=== PATIENT | male | born 1935 | race Caucasian/White ===

== ENCOUNTER 2021-04-23 10:28 | Outpatient (CLI) | payer OTHER | END 2021-04-23 10:29 | disposition critical access hospital (66) | LOC: EMS 10:28 | DX: M25.552 Pain in left hip (principal) | CPT/HCPCS: A0425; A0429 ==

== ENCOUNTER 2021-04-23 10:47 | Emergency (ER) | payer OTHER ==
--- NOTE | 2021-04-23 10:55 | ED Physician Documentation ---
PD HPI Fall - Stated complaint Stated Complaint: GLF/HIP PX - History obtained from History obtained from: Patient, EMS - History of Present Illness Mechanism of injury: Unknown Fall distance: Standing position Where injury occurred: Home Timing - onset: Today Injury(ies) location: Left Uppper Extremity, Left Lower Extremity Quality of pain: Pain Associated symptoms: Other (unwitnessed). No: LOC, AMS, Neck pain, Weakness, Paresthesias, Dyspnea, Nausea / vomiting Symptoms improve with: Rest Worsens with: Movement, Palpation Contributing factors: Anticoagulated Similar symptoms before: Has not had sx before Recently seen: Not recently seen - Additional information Additional information: 86-year-old male who is a resident of [facility] was found on the ground this morning and uncertain when he fell or how he fell but he was assisted back up to the bed he was able to bear weight to this and he now has pain to the left hip as well as left forearm. He is on Eliquis and had an unwitnessed fall. Review of Systems Constitutional: denies: Fever Eyes: denies: Photophobia Ears: denies: Ear pain Nose: denies: Congestion Throat: denies: Sore throat Cardiac: denies: Chest pain / pressure Respiratory: denies: Dyspnea, Cough GI: denies: Vomiting Skin: denies: Rash Musculoskeletal: reports: Extremity pain, Joint pain, Pain with weight bearing. denies: Neck pain, Back pain Neurologic: denies: Generalized weakness, Focal weakness, Numbness PD PAST MEDICAL HISTORY - Present Medications Home Medications: Ambulatory Orders Medication Instructions Recorded Confirmed Acetaminophen [Tylenol] 975 mg PO Q6H PRN 04/23/21 04/23/21 Apixaban [Eliquis] 5 mg ORAL BID 04/23/21 04/23/21 Digoxin [Lanoxin] 125 mcg PO DAILY 04/23/21 04/23/21 Famotidine [Pepcid] 20 mg PO BID 04/23/21 04/23/21 Ferrous Sulfate 325 mg PO DAILY 04/23/21 04/23/21 Lactobacillus Rhamnosus GG 1 cap PO DAILY 04/23/21 04/23/21 [Culturelle] Lactulose 15 ml PO DAILY 04/23/21 04/23/21 Loperamide [Imodium] 2 mg PO QID PRN 04/23/21 04/23/21 Mag Hydrox/Aluminum Hyd/Simeth 30 ml PO Q4HR PRN 04/23/21 04/23/21 [Antacid Anti-Gas Liquid] Magnesium Hydroxide [Milk of 30 ml PO DAILY PRN 04/23/21 04/23/21 Magnesia] Metoprolol Succinate [Toprol Xl] 50 mg PO BID 04/23/21 04/23/21 Mirtazapine 7.5 mg PO HS 04/23/21 04/23/21 OLANZapine [Zyprexa] 2.5 mg PO ONCE 04/23/21 04/23/21 Polyethylene Glycol 8000 17 gm ORAL DAILY PRN 04/23/21 04/23/21 [Polyethylene Glycol] Potassium Chloride [Klor-Con 10] 10 meq PO DAILY 04/23/21 04/23/21 allopurinoL [Zyloprim] 100 mg PO DAILY 04/23/21 04/23/21 dilTIAZem HCL [Diltiazem 24Hr ER 120 mg ORAL DAILY 04/23/21 04/23/21 (Xr)] - Allergies Allergies/Adverse Reactions: Allergies Allergy/AdvReac Type Severity Reaction Status Date / Time aspirin Allergy Unknown Verified 04/23/21 10:59 morphine Allergy Unknown Verified 04/23/21 10:59 Sulfa (Sulfonamide Allergy Unknown Verified 04/23/21 10:59 Antibiotics) PD ED PE NORMAL - Vitals Vital signs reviewed: Yes (hypertensive ) - General General: No acute distress, Well developed/nourished - HEENT HEENT: Atraumatic, PERRL, EOMI, Other (no tender area to deep palpation of the scalp ) - Neck Neck: Supple, no meningeal sign, No bony TTP - Cardiac Cardiac: RRR, No murmur - Respiratory Respiratory: No respiratory distress, Clear bilaterally - Abdomen Abdomen: Soft, Non tender - Back Back: No CVA TTP, No spinal TTP - Derm Derm: Normal color, Warm and dry, No rash - Extremities Extremities: No deformity, Other (Point tenderness to the lateral trochanter and pain with flexion extension and internal and external rotation. The leg is not shortened or rotated.) - Neuro Neuro: state comptroller 2-12 intact, No motor deficit, No sensory deficit, Normal speech Eye Opening: Spontaneous Motor: Obeys Commands Verbal: Oriented GCS Score: 15 - Psych Psych: Normal mood, Normal affect Results - Vitals Vitals: Vital Signs - 24 hr 04/23/21 04/23/21 04/23/21 10:59 12:10 13:55 Temperature 36.6 C 36.4 C L Heart Rate 90 87 98 Respiratory 16 12 14 Rate Blood Pressure 138/101 H 115/79 104/67 O2 Saturation 100 100 94 04/23/21 04/23/21 14:39 17:06 Temperature 37.6 C Heart Rate 105 H 82 Respiratory 16 16 Rate Blood Pressure 133/97 H 111/76 O2 Saturation 98 94 Oxygen O2 Source Room air - Labs Labs: Laboratory Tests 04/23/21 04/23/21 04/23/21 10:55 10:55 12:05 WBC 6.4 RBC 4.54 L Hgb 13.2 L Hct 42.1 MCV 92.7 MCH 29.1 MCHC 31.4 L RDW 14.6 Plt Count 183 MPV 10.1 Neut # (Auto) 3.7 Lymph # (Auto) 1.7 Miner # (Auto) 0.6 Eos # (Auto) 0.3 Baso # (Auto) 0.0 Absolute Nucleated RBC 0.00 Nucleated RBC % 0.0 Sodium 139 Potassium 4.5 Chloride 104 Carbon Dioxide 29 Anion Gap 6.0 BUN 12 Creatinine 0.7 Estimated GFR (MDRD) 107 Glucose 93 Calcium 9.0 Total Bilirubin 1.1 H AST 20 ALT 13 Alkaline Phosphatase 128 H Total Protein 6.9 Albumin 3.9 Globulin 3.0 Albumin/Globulin Ratio 1.3 Lipase 33 Nasal Adenovirus (PCR) NOT DETECTED Nasal B. parapertussis DNA (PCR) NOT DETECTED Nasal Coronavir 229E PCR NOT DETECTED Nasal Coronavir HKU1 PCR NOT DETECTED Nasal Coronavir NL63 PCR NOT DETECTED Nasal Coronavir OC43 PCR NOT DETECTED Nasal Enterovir/Rhinovir PCR NOT DETECTED Nasal Influenza B PCR NOT DETECTED Nasal Influenza A PCR NOT DETECTED Nasal Parainfluen 1 PCR NOT DETECTED Nasal Parainfluen 2 PCR NOT DETECTED Nasal Parainfluen 3 PCR NOT DETECTED Nasal Parainfluen 4 PCR NOT DETECTED Nasal RSV (PCR) NOT DETECTED Nasal B.pertussis DNA PCR NOT DETECTED Nasal C.pneumoniae (PCR) NOT DETECTED Flynn Human Metapneumo PCR NOT DETECTED Nasal M.pneumoniae (PCR) NOT DETECTED Nasal SARS-CoV-2 (PCR) NOT DETECTED - Rads (name of study) hip and pelvis Radiology: Prelim report reviewed (Impression, impacted left subcapital femoral neck fracture.), EMP read indepedently, See rad report forearm Radiology: Prelim report reviewed (Impression: No displaced fractures are seen on these plain films advanced atherosclerotic calcification is seen.), EMP read indepedently, See rad report CT head Radiology: Prelim report reviewed (Impression: 1. No acute intracranial abnormality. Moderate cerebral volume loss and mild chronic white matter small vessel ischemic changes.), EMP read indepedently, See rad report PD MEDICAL DECISION MAKING - ED course Complexity details: reviewed results, re-evaluated patient, considered differential, d/w patient ED course: 86-year-old male with advanced dementia has had a fall in his home unwitnessed this morning he has an impacted left femoral neck fracture. We have little or no information on this patient's medical history. He has been most recently s een at [facility]. We do not have records from them as yet. We do not have orthopedic coverage here for 3 more days. I have contacted Dr. Avilez the orthopedic surgeon at [facility]. They are boarding patients at [facility] and [facility]. We attempted [facility] as well and they are boarding in their ED as well and Dr. Tripathi is unable to accept the patient. We have call ed additional hospitals as well. We were able to get past history on him from an admission to [facility] in November that was complicated and involved a common duct stone, osteomylitis of the spine, and enterococcal sepsis. He was in the hospital for 3 months. He has heart rate varying from 130-95 and he is administered diltiazem 20mg intravenously for rate control of atrial fibrillation. We were finally able to find a bed at [facility] with Dr. Kirk Durant the orthopedic second surgeon consulting and Dr. Cope the hospitalist excepting. I have notified patient's son-in-law Ollie [phone] that he will be going down to [facility]. Departure - Departure Disposition: 02 Transfer Acute Care Hosp Clinical Impression: Atrial fibrillation with RVR Subcapital fracture of neck of left femur Qualifiers: Encounter type: initial encounter Fracture type: closed Qualified Code(s): S72.012A - Unspecified intracapsular fracture of left femur, initial encounter for closed fracture Hypertension Qualifiers: Hypertension type: unspecified Qualified Code(s): I10 - Essential (primary) hypertension Condition: Stable
--- NOTE | 2021-04-23 11:35 | CT Report ---
PROCEDURE: HEAD WO INDICATIONS: trauma, eliquis TECHNIQUE: Noncontrast 4.5 mm thick angled axial sections acquired from the foramen magnum to the vertex. For r adiation dose reduction, the following was used: automated exposure control, adjustment of mA and/or kV according to patient size. COMPARISON: None. FINDINGS: Image quality: Excellent. CSF spaces: There is moderate cerebral volume loss with prominence of the ventricles and sulci. Basa l cisterns are patent. No extra-axial fluid collections. Brain: No intracranial hemorrhage, mass, or mass effect. There are bilateral subcortical and periven tricular white matter hypodensities consistent with mild chronic small vessel ischemic changes. Joya- white matter interface is preserved. Skull and face: Calvarium and visualized facial bones are intact, without suspicious lesions. Sinuses: Visualized sinuses and mastoids are clear. IMPRESSION: 1. No acute intracranial abnormality. 2. Moderate cerebral volume loss and mild chronic white matter small vessel ischemic changes. Reviewed by: Alejandro Andino MD on 04/23/2021 11:34 AM PST Approved by: Alejandro Andino MD on 04/23/2021 11:34 AM PST Station ID: [id number]
--- NOTE | 2021-04-23 11:35 | XRAY Report ---
PROCEDURE: Hip w/Pelvis 2-3V LT INDICATIONS: fall trochanter pain TECHNIQUE: AP pelvis with lateral view(s) of the left hip COMPARISON: Correlation is made with the accompanying images, 04/23/2021. FINDINGS: Bones: There is impacted subcapital fracture of the left femoral neck. No fracture of the bones of t he pelvis can be seen. There is moderate to severe superior joint space narrowing seen involving , left worse than right. Th ere is associated remodeling change, with subchondral sclerosis and osteophyte formation. No dislocations. Pelvic ring appears intact. No suspicious bony lesions. Soft tissues: The visualized bowel gas pattern is normal. No suspicious soft tissue calcifications. Right-sided pelvis clips are seen. Atherosclerotic calcification is seen. IMPRESSION: Impacted left subcapital femoral neck fracture. If it would be helpful for clinical management decision making, please consider a dedicated hip CT fo r further evaluation. Reviewed by: Shane Parks MD on 04/23/2021 10:33 AM [facility] Approved by: Shane Parks MD on 04/23/2021 10:33 AM [facility] Station ID: [id number]
--- NOTE | 2021-04-23 11:36 | XRAY Report ---
PROCEDURE: Forearm LT INDICATIONS: fall distal radius pain TECHNIQUE: 2 views of the forearm were acquired. COMPARISON: Correlation is made with the accompanying images, 04/23/2021. FINDINGS: Bones: No fractures or dislocations. No suspicious bony lesions. Degenerative changes are seen, particularly involving the wrist. Soft tissues: No suspicious soft tissue calcifications or masses. Prominent atherosclerotic calcific ation is seen. IMPRESSION: No displaced fractures are seen on these plain films. Please correlate with focal tenderness. If there is point tenderness (or other clinical concern for a fracture not seen on these plain films) then please consider a dedicated CT study or a short term fo llow up plain film series for further evaluation. Advanced atherosclerotic calcification is seen. Reviewed by: Shane Parks MD on 04/23/2021 10:34 AM [facility] Approved by: Shane Parks MD on 04/23/2021 10:34 AM [facility] Station ID: [id number]
[2021-04-23 11:57] LABS: BASOPHILS % (AUTO) 0.6 %; EOSINOPHILS # (AUTO) 0.3 10^3/uL (0.0-0.7); EOSINOPHILS % (AUTO) 4.7 %; HCT - HEMATOCRIT 42.1 % (42.0-52.0); HGB - HEMOGLOBIN 13.2 g/dL (14.0-18.0); LYMPHOCYTES # (AUTO) 1.7 10^3/uL (1.5-3.5); LYMPHOCYTES % (AUTO) 27.1 %; MEAN CORPUSCULAR HEMOGLOBIN 29.1 pg (27.0-31.0); MEAN CORPUSCULAR HGB CONC 31.4 g/dL (32.0-36.0); MEAN CORPUSCULAR VOLUME 92.7 fL (80.0-94.0); MEAN PLATELET VOLUME 10.1 fL (7.4-11.4); MONOCYTES # (AUTO) 0.6 10^3/uL (0.0-1.0); MONOCYTES % (AUTO) 9.5 %; NEUTROPHILS # (AUTO) 3.7 10^3/uL (1.5-6.6); NEUTROPHILS % (AUTO) 57.6 %; PLT - PLATELET COUNT 183 10^3/uL (130-450); RED BLOOD COUNT 4.54 10^6/uL (4.70-6.10); RED CELL DISTRIBUTION WIDTH 14.6 % (12.0-15.0); WHITE BLOOD COUNT 6.4 x10^3/uL (4.8-10.8)
[2021-04-23 12:07] LABS: ALBUMIN 3.9 g/dL (3.2-5.5); ALBUMIN/GLOBULIN RATIO 1.3 (1.0-2.2); BILIRUBIN,TOTAL 1.1 mg/dL (0.2-1.0); CREATININE 0.7 mg/dL (0.6-1.2); POTASSIUM 4.5 mmol/L (3.5-5.0); TOTAL PROTEIN 6.9 g/dL (6.7-8.2)
[2021-04-23 13:04] LABS: B. PARAPERTUSSIS- RESP PCR PAN NOT DETECTED; B. PERTUSSIS- RESP PCR PANEL NOT DETECTED; C. PNEUMONIAE- RESP PCR PANEL NOT DETECTED; CORONAVIRUS 229E-RESP PCR NOT DETECTED; CORONAVIRUS HKU1-RESP PCR NOT DETECTED; CORONAVIRUS NL63-RESP PCR NOT DETECTED; CORONAVIRUS OC43-RESP PCR NOT DETECTED; HUMAN METAPNEUMOVIRUS NOT DETECTED; INFLUENZA A- RESP PCR PANEL NOT DETECTED; INFLUENZA B - RESP PCR PANEL NOT DETECTED; M. PNEUMONIAE- RESP PCR PANEL NOT DETECTED; PARAINFLUENZA VIRUS 1 NOT DETECTED; PARAINFLUENZA VIRUS 2 NOT DETECTED; PARAINFLUENZA VIRUS 3 NOT DETECTED; PARAINFLUENZA VIRUS 4 NOT DETECTED; RHINOVIRUS/ENTEROVIRUS NOT DETECTED; RSV- RESP PCR PANEL NOT DETECTED; SARS-CoV-2 -RESP PCR PANEL NOT DETECTED
[2021-04-23] MEDS ORDERED: KETOROLAC 30 MG/ML VIAL IVP STA (15:20)
[2021-04-23] MEDS ORDERED: diltiaZEM INJ 5 MG/ML VIAL IVP STA (15:24)
[2021-04-23 19:10] VITALS: BP 128/70
== END 2021-04-23 19:30 | disposition short-term general hospital (02) ==
LOC: ED 10:47
DX: S72.012A Unspecified intracapsular fracture of left femur, initial encounter for closed fracture (principal); W19.XXXA Unspecified fall, initial encounter; I48.20 Chronic atrial fibrillation, unspecified; Z79.01 Long term (current) use of anticoagulants; F03.90 Unspecified dementia, unspecified severity, without behavioral disturbance, psychotic disturbance, mood disturbance, and anxiety; Z20.822 Contact with and (suspected) exposure to COVID-19
CPT/HCPCS: 0202U; 36415; 70450; 73090; 73502; 80053; 83690; 85025; 96374; 96375; 99283; 99285

== ENCOUNTER 2021-04-23 19:30 | Outpatient (CLI) | payer OTHER | END 2021-04-23 19:31 | disposition short-term general hospital (02) | LOC: EMS 19:30 | PROVIDERS: ATTEND Emergency Medicine | DX: S72.012A Unspecified intracapsular fracture of left femur, initial encounter for closed fracture (principal); W19.XXXA Unspecified fall, initial encounter; Y92.199 Unspecified place in other specified residential institution as the place of occurrence of the external cause | CPT/HCPCS: A0425; A0428 ==

== ENCOUNTER 2021-06-11 21:13 | Outpatient (CLI) | payer OTHER | END 2021-06-11 21:14 | disposition critical access hospital (66) | LOC: EMS 21:13 | DX: R07.81 Pleurodynia (principal); S01.112A Laceration without foreign body of left eyelid and periocular area, initial encounter; W18.30XA Fall on same level, unspecified, initial encounter; Y92.099 Unspecified place in other non-institutional residence as the place of occurrence of the external cause; Z79.01 Long term (current) use of anticoagulants | CPT/HCPCS: A0425; A0429 ==

== ENCOUNTER 2021-06-11 21:33 | Emergency (ER) | payer OTHER ==
[~2021-06-11 21:33] MED LIST: AMOX/CLAV 875 MG/125 MG TABLET PO STA
[2021-06-11] MEDS ORDERED: ACETAMINOPHEN 325 MG TABLET PO STA (21:41)
--- NOTE | 2021-06-11 22:03 | ED Physician Documentation ---
History of Present Illness - Stated complaint Stated Complaint: GLF, LEFT EYE LAC AND LEFT SIDED RIB PAIN - Chief complaint Chief Complaint: Trauma Hd/Nk - History obtained from History obtained from: EMS - Additonal information Additional information: 86yM with pmh afib on eliquis, moderate dementia presents s/p [facility] patient called for help from staff at 3pm and was found on floor with lac to L eye brow. later in the evening he c/o L rib pain so ems was called and patient came in as modified trauma (+HT on eliquis). c/o sudden onset intermittent sharp pain to L anterior ribcage that is nonradiating, worse with deep breathing, progressively worsening over the day today since his fall. denies other injury. patient AOX2 at baseline. Review of Systems Unable to obtain: Dementia PD PAST MEDICAL HISTORY - Present Medications Home Medications: Ambulatory Orders Medication Instructions Recorded Confirmed Acetaminophen [Tylenol] 975 mg PO Q6H PRN 04/23/21 04/23/21 Apixaban [Eliquis] 5 mg ORAL BID 04/23/21 04/23/21 Digoxin [Lanoxin] 125 mcg PO DAILY 04/23/21 04/23/21 Famotidine [Pepcid] 20 mg PO BID 04/23/21 04/23/21 Ferrous Sulfate 325 mg PO DAILY 04/23/21 04/23/21 Lactobacillus Rhamnosus GG 1 cap PO DAILY 04/23/21 04/23/21 [Culturelle] Lactulose 15 ml PO DAILY 04/23/21 04/23/21 Loperamide [Imodium] 2 mg PO QID PRN 04/23/21 04/23/21 Mag Hydrox/Aluminum Hyd/Simeth 30 ml PO Q4HR PRN 04/23/21 04/23/21 [Antacid Anti-Gas Liquid] Magnesium Hydroxide [Milk of 30 ml PO DAILY PRN 04/23/21 04/23/21 Magnesia] Metoprolol Succinate [Toprol Xl] 50 mg PO BID 04/23/21 04/23/21 Mirtazapine 7.5 mg PO HS 04/23/21 04/23/21 OLANZapine [Zyprexa] 2.5 mg PO ONCE 04/23/21 04/23/21 Polyethylene Glycol 8000 17 gm ORAL DAILY PRN 04/23/21 04/23/21 [Polyethylene Glycol] allopurinoL [Zyloprim] 100 mg PO DAILY 04/23/21 04/23/21 Acetaminophen [Acetaminophen Extra 500 mg PO TID 06/11/21 06/11/21 Strength] Lactobacillus Rhamnosus GG 1 cap PO DAILY 06/11/21 06/11/21 [Culturelle] - Allergies Allergies/Adverse Reactions: Allergies Allergy/AdvReac Type Severity Reaction Status Date / Time aspirin Allergy Unknown Verified 04/23/21 10:59 morphine Allergy Unknown Verified 04/23/21 10:59 Sulfa (Sulfonamide Allergy Unknown Verified 04/23/21 10:59 Antibiotics) PD ED PE NORMAL - Vitals Vital signs reviewed: Yes - General General: No acute distress, Well developed/nourished - HEENT HEENT: PERRL, EOMI, Other (L browline superficial lac, hemostatic. L forehead small hematoma. ) - Neck Neck: Other (midline neck discomfort to palpation. ) - Cardiac Cardiac: RRR, Other (L anterolateral ribcage ttp) - Respiratory Respiratory: No respiratory distress, Clear bilaterally - Abdomen Abdomen: Non tender, Non distended - Back Back: No spinal TTP, Other (pelvis stable) - Derm Derm: Normal color, Warm and dry - Extremities Extremities: No deformity, Normal ROM s pain - Neuro Neuro: No motor deficit, No sensory deficit - Psych Psych: Normal mood, Normal affect, Other (mentating at baseline per ems) Results - Vitals Vitals: Vital Signs - 24 hr 06/11/21 06/11/21 21:39 22:13 Temperature 36.3 C L Heart Rate 108 H 110 H Respiratory 17 15 Rate Blood Pressure 167/109 H 138/86 H O2 Saturation 98 99 Oxygen O2 Source Room air PD MEDICAL DECISION MAKING - ED course ED course: 86yM presents as modified trauma with concern for +HT and L sided rib pain. traumatic imaging pending. Patient without acute traumatic pathology on CT. will dc home with tylenol prn for pain. Departure - Departure Disposition: 01 Home, Self Care Clinical Impression: Lumbar compression fracture Condition: Stable Instructions: ED Fx Comp Vertebral Comments: Mr. Aranda came to the ED for evaluation after a fall. He has an L1 compression deformity on CT imaging that may be old, but otherwise has no broken bones or bleeding in the brain. His cut on the eyebrow was repaired with dermabond. Please monitor for signs of infection. He should take tylenol 650mg every 6 hours as needed for pain. Please have him come back to the emergency department if he develops new or worsening symptoms or you have other concerns.
--- NOTE | 2021-06-11 22:22 | CT Report ---
PROCEDURE: HEAD WO INDICATIONS: Head trauma, mod-severe TECHNIQUE: Noncontrast 4.5 mm thick angled axial sections acquired from the foramen magnum to the vertex. For r adiation dose reduction, the following was used: automated exposure control, adjustment of mA and/or kV according to patient size. COMPARISON: April 23, 2021. FINDINGS: BRAIN PARENCHYMA: Moderate matter hypoattenuation, compatible with the sequela microvascular ischemia . Prominence of the cortical sulci, likely secondary to age-related atrophy. No acute cortical based (large territory) infarction, intracranial hemorrhage, mass or mass effect, or abnormal fluid collect ion. The density in the larger dural venous sinuses is grossly normal. VENTRICLES: Normal in size, shape, and position. BONES/SINUSES: The skull base and calvarium demonstrate no acute abnormality. The paranasal sinuses a nd mastoid air cells are well aerated. IMPRESSION: 1.No acute intracranial abnormality. Reviewed by: Juan Solis MD on 06/11/2021 10:21 PM [facility] Approved by: Juan Solis MD on 06/11/2021 10:21 PM PST Station ID: [id number]
--- NOTE | 2021-06-11 22:25 | CT Report ---
PROCEDURE: CERVICAL SPINE WO INDICATIONS: Neck trauma, midline tenderness TECHNIQUE: Noncontrast 3 mm thick sections acquired from the skull base to the T4 level. Sagittal and coronal r eformats were then constructed. For radiation dose reduction, the following was used: automated exp osure control, adjustment of mA and/or kV according to patient size. COMPARISON: None. FINDINGS: C-SPINE: No acute, displaced fracture. Grade 1 anterolisthesis at C3-4 and C7-T1. The vertebral body heights delayed are maintained. Moderate disc height loss with small posterior disc osteophyte comple xes at C4-C7. SOFT TISSUES: No prevertebral soft tissue thickening. IMPRESSION: 1.No acute osseous abnormality of the cervical spine. Reviewed by: Juan Solis MD on 06/11/2021 10:24 PM [facility] Approved by: Juan Solis MD on 06/11/2021 10:24 PM [facility] Station ID: [id number]
--- NOTE | 2021-06-11 22:34 | CT Report ---
PROCEDURE: CHEST WO INDICATIONS: L rib tenderness s/p fall TECHNIQUE: Noncontrast 1mm axial images were acquired from the pulmonary apices to the posterior costophrenic an gles. Axial 5 mm soft tissue kernel reconstructions were performed as well as 8 mm axial MIP and cor onal and sagittal 5 mm reformations. For radiation dose reduction, the following was used: automate d exposure control, adjustment of mA and/or kV according to patient size. COMPARISON: None. FINDINGS: Thyroid: Homogeneous. Vasculature: Dilatation of the ascending thoracic aorta, measuring up to 4.2 cm. Mild calcified ather omatous change. Heart: Cardiomegaly without pericardial effusion. Coronary artery calcifications are present. Mediastinum/marichuy: No pathologically enlarged lymph nodes by size criteria. Small to moderate hiatal h ernia. Lung/pleura: No consolidation, pleural effusion, or pneumothorax. Bilateral calcified pleural plaques. Tracheobronchial tree: Patent. Mild atelectasis. Upper abdomen: No acute abnormality. Predominately left intrahepatic pneumobilia. 2.1 cm hypoattenuating lesion in the left kidney most consistent with a cyst. Colonic diverticulosis. Bones: No significant abnormality. Multifocal degenerative change. T11-12 endplate irregularities, wh ich may reflect Schmorl nodes. Mild anterior L1 compression deformity. Chest wall: No significant abnormality. IMPRESSION: 1.No acute intrathoracic abnormality. Reviewed by: Juan Solis MD on 06/11/2021 10:32 PM [facility] Approved by: Juan Solis MD on 06/11/2021 10:32 PM PST Station ID: [id number]
[2021-06-12 01:13] VITALS: BP 132/84
== END 2021-06-12 01:07 | disposition home or self-care (01) ==
LOC: EDUNIT# → SUPCPDRO 21:33 → ED 21:33
DX: S01.112A Laceration without foreign body of left eyelid and periocular area, initial encounter (principal); M48.56XA Collapsed vertebra, not elsewhere classified, lumbar region, initial encounter for fracture; W19.XXXA Unspecified fall, initial encounter; Y92.129 Unspecified place in nursing home as the place of occurrence of the external cause
CPT/HCPCS: 70450; 71250; 72125; 99281; 99284; A9270

== ENCOUNTER 2021-06-12 01:12 | Outpatient (CLI) | payer OTHER | END 2021-06-12 01:13 | disposition home or self-care (01) | LOC: EMS 01:12 | PROVIDERS: ATTEND Emergency Medicine | DX: S32.019A Unspecified fracture of first lumbar vertebra, initial encounter for closed fracture (principal); S01.112A Laceration without foreign body of left eyelid and periocular area, initial encounter; W18.30XA Fall on same level, unspecified, initial encounter; Y92.099 Unspecified place in other non-institutional residence as the place of occurrence of the external cause; R41.0 Disorientation, unspecified; R07.9 Chest pain, unspecified | CPT/HCPCS: A0425; A0428 ==

== ENCOUNTER 2021-07-18 23:52 | Outpatient (CLI) | payer OTHER | END 2021-07-18 23:53 | disposition critical access hospital (66) | LOC: EMS 23:52 | DX: S51.012A Laceration without foreign body of left elbow, initial encounter (principal); W18.30XA Fall on same level, unspecified, initial encounter; Y93.01 Activity, walking, marching and hiking; Y92.193 Bedroom in other specified residential institution as the place of occurrence of the external cause | CPT/HCPCS: A0425; A0429 ==

== ENCOUNTER 2021-07-19 00:09 | Emergency (ER) | payer MEDICAID, MEDICARE, OTHER ==
[2021-07-19 00:24] LABS: BASOPHILS # (AUTO) 0.1 10^3/uL (0.0-0.1); BASOPHILS % (AUTO) 0.9 %; EOSINOPHILS # (AUTO) 0.2 10^3/uL (0.0-0.7); EOSINOPHILS % (AUTO) 3.6 %; HCT - HEMATOCRIT 38.2 % (42.0-52.0); HGB - HEMOGLOBIN 12.4 g/dL (14.0-18.0); LYMPHOCYTES # (AUTO) 1.6 10^3/uL (1.5-3.5); MEAN CORPUSCULAR HEMOGLOBIN 29.8 pg (27.0-31.0); MEAN CORPUSCULAR HGB CONC 32.5 g/dL (32.0-36.0); MEAN CORPUSCULAR VOLUME 91.8 fL (80.0-94.0); MEAN PLATELET VOLUME 10.1 fL (7.4-11.4); MONOCYTES # (AUTO) 0.5 10^3/uL (0.0-1.0); MONOCYTES % (AUTO) 9.1 %; NEUTROPHILS # (AUTO) 3.4 10^3/uL (1.5-6.6); NEUTROPHILS % (AUTO) 59.1 %; PLT - PLATELET COUNT 153 10^3/uL (130-450); RED BLOOD COUNT 4.16 10^6/uL (4.70-6.10); RED CELL DISTRIBUTION WIDTH 15.4 % (12.0-15.0); WHITE BLOOD COUNT 5.8 x10^3/uL (4.8-10.8)
[2021-07-19 00:30] LABS: INR 1.6 (0.8-1.2); PT - PROTHROMBIN TIME 17.7 secs (9.9-12.6)
[2021-07-19 00:36] LABS: ALBUMIN 3.7 g/dL (3.2-5.5); ALBUMIN/GLOBULIN RATIO 1.3 (1.0-2.2); BILIRUBIN,TOTAL 0.8 mg/dL (0.2-1.0); CALCIUM 8.7 mg/dL (8.5-10.3); CREATININE 0.7 mg/dL (0.6-1.2); TOTAL PROTEIN 6.5 g/dL (6.7-8.2)
[2021-07-19] MEDS: SODIUM CHLORIDE 0.9% 1,000 ML IV STA (00:50)
[2021-07-19] MEDS: diltiaZEM INJ 5 MG/ML VIAL IVP STA (00:50)
--- NOTE | 2021-07-19 01:03 | CT Report ---
PROCEDURE: HEAD WO INDICATIONS: fall/injury/anticoag TECHNIQUE: Noncontrast 4.5 mm thick angled axial sections acquired from the foramen magnum to the vertex. For r adiation dose reduction, the following was used: automated exposure control, adjustment of mA and/or kV according to patient size. COMPARISON: CT head 06/11/2021 FINDINGS: Image quality: Excellent. The ventricular system and cortical sulci demonstrate atrophy, consistent for patient's stated age. There are areas of hypodensity in the periventricular and subcortical white matter. There is no acut e intra or extra-axial fluid collection. No acute hemorrhage, mass lesion or midline shift. Brainst em is unremarkable. Globes are symmetrical. Sinuses are aerated. Osseous structures are intact. IMPRESSION: 1. No acute intracranial process. 2. Moderate to severe atrophy and chronic microvascular ischemic changes. Reviewed by: Vonda Fernandez MD on 07/19/2021 1:02 AM PST Approved by: Vonda Fernandez MD on 07/19/2021 1:02 AM PST Station ID: [id number]
--- NOTE | 2021-07-19 01:05 | CT Report ---
PROCEDURE: CERVICAL SPINE WO INDICATIONS: fall/head injury TECHNIQUE: Noncontrast 3 mm thick sections acquired from the skull base to the T4 level. Sagittal and coronal r eformats were then constructed. For radiation dose reduction, the following was used: automated exp osure control, adjustment of mA and/or kV according to patient size. COMPARISON: CT cervical spine 06/11/2021 FINDINGS: Image quality: Excellent. Bones: No fractures or dislocations. Visualized superior ribs are intact. Multilevel degenerative changes are present. There is trace retrolisthesis of C5 on C6 as well as trace anterolisthesis of C7 on T1. Soft tissues: Prevertebral soft tissues are normal in thickness. No paravertebral hematomas. No ap ical pneumothoraces. IMPRESSION: Degenerative changes without visualized fracture. Reviewed by: Vonda Fernandez MD on 07/19/2021 1:03 AM PST Approved by: Vonda Fernandez MD on 07/19/2021 1:03 AM PST Station ID: [id number]
--- NOTE | 2021-07-19 01:35 | ED Physician Documentation ---
History of Present Illness - Stated complaint Stated Complaint: GLF - Chief complaint Chief Complaint: Neuro - History obtained from History obtained from: Patient, EMS - Additonal information Additional information: The patient is sent to the emergency department from his assisted living facility after experiencing a mechanical fall while walking with his walker. The patient apparently tripped over his walker, then stumbled several steps before falling to the ground, which was a hard surface floor, striking his head. According to medics, the staff reported the patient did not lose consciousness, but was helped right back up. The patient denies any complaints at this time. Medics report that the patient does seem to have a fairly fast heart rate. He has not had any chest pain. Denies any complaints. He states nothing is bothering him. Review of Systems Ten Systems: 10 systems reviewed and negative Constitutional: reports: Reviewed and negative Eyes: reports: Reviewed and negative Ears: reports: Reviewed and negative Nose: reports: Reviewed and negative Throat: reports: Reviewed and negative Cardiac: reports: Reviewed and negative Respiratory: reports: Reviewed and negative GI: reports: Reviewed and negative : reports: Reviewed and negative Skin: reports: Reviewed and negative Musculoskeletal: reports: Reviewed and negative Neurologic: reports: Reviewed and negative Psychiatric: reports: Reviewed and negative Endocrine: reports: Reviewed and negative Immunocompromised: reports: Reviewed and negative PD PAST MEDICAL HISTORY - Present Medications Home Medications: Ambulatory Orders Medication Instructions Recorded Confirmed Acetaminophen [Tylenol] 975 mg PO Q6H PRN 04/23/21 04/23/21 Apixaban [Eliquis] 5 mg ORAL BID 04/23/21 04/23/21 Digoxin [Lanoxin] 125 mcg PO DAILY 04/23/21 04/23/21 Famotidine [Pepcid] 20 mg PO BID 04/23/21 04/23/21 Ferrous Sulfate 325 mg PO DAILY 04/23/21 04/23/21 Lactobacillus Rhamnosus GG 1 cap PO DAILY 04/23/21 04/23/21 [Culturelle] Lactulose 15 ml PO DAILY 04/23/21 04/23/21 Loperamide [Imodium] 2 mg PO QID PRN 04/23/21 04/23/21 Mag Hydrox/Aluminum Hyd/Simeth 30 ml PO Q4HR PRN 04/23/21 04/23/21 [Antacid Anti-Gas Liquid] Magnesium Hydroxide [Milk of 30 ml PO DAILY PRN 04/23/21 04/23/21 Magnesia] Metoprolol Succinate [Toprol Xl] 50 mg PO BID 04/23/21 04/23/21 Mirtazapine 7.5 mg PO HS 04/23/21 04/23/21 OLANZapine [Zyprexa] 2.5 mg PO ONCE 04/23/21 04/23/21 Polyethylene Glycol 8000 17 gm ORAL DAILY PRN 04/23/21 04/23/21 [Polyethylene Glycol] allopurinoL [Zyloprim] 100 mg PO DAILY 04/23/21 04/23/21 Acetaminophen [Acetaminophen Extra 500 mg PO TID 06/11/21 06/11/21 Strength] Lactobacillus Rhamnosus GG 1 cap PO DAILY 06/11/21 06/11/21 [Culturelle] - Allergies Allergies/Adverse Reactions: Allergies Allergy/AdvReac Type Severity Reaction Status Date / Time aspirin Allergy Unknown Verified 04/23/21 10:59 morphine Allergy Unknown Verified 04/23/21 10:59 Sulfa (Sulfonamide Allergy Unknown Verified 04/23/21 10:59 Antibiotics) PD ED PE NORMAL - Vitals Vital signs reviewed: Yes - General General: Alert and oriented X 3, No acute distress, Well developed/nourished, Other - HEENT HEENT: Atraumatic, PERRL, EOMI, Ears normal, Moist mucous membranes, Other (Slight contusion on left forehead without bony deformity or significant soft tissue swelling.) - Neck Neck: Supple, no meningeal sign, No bony TTP - Cardiac Cardiac: No murmur, Strong equal pulses, Other (Irregular rate and rhythm) - Respiratory Respiratory: No respiratory distress, Clear bilaterally - Abdomen Abdomen: Soft, Non tender, Non distended - Back Back: No CVA TTP, No spinal TTP - Derm Derm: Normal color, Warm and dry, No rash - Extremities Extremities: No deformity, No edema, No calf tenderness / cord - Neuro Neuro: director of recruitment and admissions 2-12 intact, No motor deficit, Other (Grossly intact. The patient answers simple questions appropriately.) - Psych Psych: Normal mood, Normal affect Results - Vitals Vitals: Vital Signs - 24 hr 07/19/21 07/19/21 07/19/21 00:15 00:18 00:50 Temperature 36.6 C 36.6 C Heart Rate 77 77 116 H Respiratory 18 18 17 Rate Blood Pressure 126/92 H 126/92 H 126/92 H O2 Saturation 97 97 99 07/19/21 07/19/21 07/19/21 00:55 01:00 01:30 Temperature Heart Rate 115 H 75 78 Respiratory 16 17 17 Rate Blood Pressure 105/64 105/60 117/80 O2 Saturation 100 99 98 07/19/21 02:04 Temperature Heart Rate 88 Respiratory 17 Rate Blood Pressure 102/63 O2 Saturation 99 Oxygen O2 Source Room air - Labs Labs: Laboratory Tests 07/19/21 07/19/21 07/19/21 00:18 00:18 00:18 WBC 5.8 RBC 4.16 L Hgb 12.4 L Hct 38.2 L MCV 91.8 MCH 29.8 MCHC 32.5 RDW 15.4 H Plt Count 153 MPV 10.1 Neut # (Auto) 3.4 Lymph # (Auto) 1.6 [place] # (Auto) 0.5 Eos # (Auto) 0.2 Baso # (Auto) 0.1 Absolute Nucleated RBC 0.00 Nucleated RBC % 0.0 PT 17.7 H INR 1.6 H Sodium 137 Potassium 4.0 Chloride 103 Carbon Dioxide 23 Anion Gap 11.0 BUN 12 Creatinine 0.7 Estimated GFR (MDRD) 107 Glucose 98 Calcium 8.7 Total Bilirubin 0.8 AST 19 ALT 11 Alkaline Phosphatase 108 Total Protein 6.5 L Albumin 3.7 Globulin 2.8 Albumin/Globulin Ratio 1.3 Lipase 29 - Rads (name of study) CT head Radiology: Final report received, EMP read indepedently, See rad report (nad) CT cervical spine Radiology: Final report received, EMP read indepedently, See rad report (nad) PD MEDICAL DECISION MAKING - ED course Complexity details: reviewed results, re-evaluated patient, considered differential, d/w patient ED course: The patient overall appeared fairly well, but was found to be in atrial fibrillation with rapid ventricular response. He was treated for this with Cardizem and responded well. He was sent for CT scans of the head and neck, which were found to be unremarkable. I felt the patient was stable for discharge home. We have discussed home management of the symptoms, as well as the usual indications for return. Departure - Departure Disposition: 01 Home, Self Care Clinical Impression: Fall from ground level, Atrial fibrillation with rapid ventricular response Closed head injury Qualifiers: Encounter type: initial encounter Qualified Code(s): S09.90XA - Unspecified injury of head, initial encounter Condition: Stable Instructions: ED Afib, ED Head Injury Closed Comments: Scans look goodno bleeding in the brain or broken bones. Your heart was going a little fast tonight, so you were given medication to help slow it down. This is as a result of your chronic atrial fibrillation. Please continue your home medications, as usual. You should follow-up with your primary care physician if your medications are not working to control your heart rate well enough. Discharge Date/Time: 07/19/21 02:40
[2021-07-19 02:05] VITALS: BP 102/63
== END 2021-07-19 02:40 | disposition home or self-care (01) ==
LOC: EDUNIT# → ED 00:09 → SUPCPDRO 00:09 → ED 02:40
DX: S09.90XA Unspecified injury of head, initial encounter (principal); I48.20 Chronic atrial fibrillation, unspecified; Z79.01 Long term (current) use of anticoagulants; W01.0XXA Fall on same level from slipping, tripping and stumbling without subsequent striking against object, initial encounter; Y93.01 Activity, walking, marching and hiking; Y92.199 Unspecified place in other specified residential institution as the place of occurrence of the external cause
CPT/HCPCS: 36415; 80053; 83690; 85025; 85610; 93005; 96374; 99282

== ENCOUNTER 2021-07-19 02:40 | Outpatient (CLI) | payer OTHER | END 2021-07-19 02:41 | disposition home or self-care (01) | LOC: EMS 02:40 | PROVIDERS: ATTEND Emergency Medicine | DX: R41.0 Disorientation, unspecified (principal); S51.012A Laceration without foreign body of left elbow, initial encounter; W19.XXXA Unspecified fall, initial encounter; I48.91 Unspecified atrial fibrillation; Z79.01 Long term (current) use of anticoagulants | CPT/HCPCS: A0425; A0428 ==

== ENCOUNTER 2022-01-17 20:37 | Emergency (ER) | payer MEDICARE, MEDICAID ==
[2022-01-17] MEDS ORDERED: ONDANSETRON 4 MG/2 ML VIAL IVP STA (20:42)
[2022-01-17] MEDS ORDERED: SODIUM CHLORIDE 0.9% 500 ML IV STA (20:42)
[2022-01-17] MEDS ORDERED: fentaNYL 100 MCG/2 ML VIAL IVP STA ×2 (20:43→21:20)
--- NOTE | 2022-01-17 20:49 | ED Physician Documentation ---
PD HPI ABD PAIN - Stated complaint Stated Complaint: L ABDOMINAL PX - History obtained from History obtained from: Patient, EMS - Additional information Additional information: Patient is an 87-year-old male with a history of atrial fibrillation (on Eliquis) presenting for evaluation of upper abdominal pain that has been present since yesterday. He describes it as sharp. He does have some radiation to the back. Nothing makes it better or worse. He has associated nausea. Per staff at the detention he had a bowel movement today that was normal. They have also noticed that he is slightly jaundiced today. He denies fever, cough, chest pain or difficulty breathing. He has not been able to tolerate much p.o.He denies known history of similar symptoms. Review of Systems Constitutional: denies: Fever Nose: denies: Congestion Throat: denies: Sore throat Cardiac: denies: Chest pain / pressure Respiratory: denies: Dyspnea GI: reports: Abdominal Pain, Nausea. denies: Vomiting, Diarrhea : denies: Dysuria Skin: denies: Rash Musculoskeletal: reports: Back pain Neurologic: denies: Headache PD PAST MEDICAL HISTORY - Present Medications Home Medications: Ambulatory Orders Medication Instructions Recorded Confirmed Acetaminophen [Tylenol] 975 mg PO Q6H PRN 04/23/21 04/23/21 Apixaban [Eliquis] 5 mg ORAL BID 04/23/21 04/23/21 Digoxin [Lanoxin] 125 mcg PO DAILY 04/23/21 04/23/21 Famotidine [Pepcid] 20 mg PO BID 04/23/21 04/23/21 Ferrous Sulfate 325 mg PO DAILY 04/23/21 04/23/21 Lactobacillus Rhamnosus GG 1 cap PO DAILY 04/23/21 04/23/21 [Culturelle] Lactulose 15 ml PO DAILY 04/23/21 04/23/21 Loperamide [Imodium] 2 mg PO QID PRN 04/23/21 04/23/21 Mag Hydrox/Aluminum Hyd/Simeth 30 ml PO Q4HR PRN 04/23/21 04/23/21 [Antacid Anti-Gas Liquid] Magnesium Hydroxide [Milk of 30 ml PO DAILY PRN 04/23/21 04/23/21 Magnesia] Metoprolol Succinate [Toprol Xl] 50 mg PO BID 04/23/21 04/23/21 Mirtazapine 7.5 mg PO HS 04/23/21 04/23/21 OLANZapine [Zyprexa] 2.5 mg PO ONCE 04/23/21 04/23/21 Polyethylene Glycol 8000 17 gm ORAL DAILY PRN 04/23/21 04/23/21 [Polyethylene Glycol] allopurinoL [Zyloprim] 100 mg PO DAILY 04/23/21 04/23/21 Acetaminophen [Acetaminophen Extra 500 mg PO TID 06/11/21 06/11/21 Strength] Lactobacillus Rhamnosus GG 1 cap PO DAILY 06/11/21 06/11/21 [Culturelle] - Allergies Allergies/Adverse Reactions: Allergies Allergy/AdvReac Type Severity Reaction Status Date / Time aspirin Allergy Unknown Verified 01/17/22 20:57 morphine Allergy Unknown Verified 01/17/22 20:57 Sulfa (Sulfonamide Allergy Unknown Verified 01/17/22 20:57 Antibiotics) PD ED PE NORMAL - General General: Alert and oriented X 3, No acute distress, Well developed/nourished - HEENT HEENT: Atraumatic, Moist mucous membranes - Neck Neck: Supple, no meningeal sign - Cardiac Cardiac: No murmur, Strong equal pulses, Other (Irregularly irregular, tachycardic) - Respiratory Respiratory: No respiratory distress, Clear bilaterally - Abdomen Abdomen: Normal bowel sounds, Soft, Non distended. No: Non tender (Upper abdominal tenderness with some guarding,) - Derm Derm: Other (Skin appears slightly jaundiced) - Extremities Extremities: No edema - Neuro Neuro: Normal speech Results - Vitals Vitals: Vital Signs - 24 hr 01/17/22 01/17/22 01/17/22 20:44 21:13 21:41 Temperature 37.3 C Heart Rate 119 H 130 H 124 H Respiratory 18 21 18 Rate Blood Pressure 160/108 H 160/96 H 145/91 H O2 Saturation 99 99 95 01/17/22 01/18/22 01/18/22 22:00 00:30 02:32 Temperature Heart Rate 128 H 131 H 128 H Respiratory 21 16 16 Rate Blood Pressure 151/94 H 170/98 H 121/72 O2 Saturation 98 94 94 01/18/22 01/18/22 01/18/22 03:00 03:05 03:10 Temperature Heart Rate 129 H 122 H 97 Respiratory 18 20 20 Rate Blood Pressure 113/76 115/80 99/66 O2 Saturation 95 96 94 08/04/22 08/04/22 08/04/22 03:15 03:30 03:36 Temperature Heart Rate 108 H 106 H 93 Respiratory 20 20 Rate Blood Pressure 103/59 L 100/64 O2 Saturation 94 94 01/18/22 05:11 Temperature Heart Rate 122 H Respiratory 19 Rate Blood Pressure 86/73 L O2 Saturation 97 Oxygen O2 Source Room air Oxygen Flow Rate 2 - EKG (time done) 2103 Rate: Rate (enter#) (126) Rhythm: Atrial fibrillation Intervals: RBBB Ischemia: No: ST elevation c/w ischemia - Labs Labs: Laboratory Tests 01/17/22 01/17/22 01/17/22 20:46 20:46 20:46 WBC 8.0 RBC 4.00 L Hgb 12.5 L Hct 37.5 L MCV 93.8 MCH 31.3 H MCHC 33.3 RDW 14.3 Plt Count 175 MPV 9.8 Neut # (Auto) 6.1 Lymph # (Auto) 1.2 L [place] # (Auto) 0.5 Eos # (Auto) 0.1 Baso # (Auto) 0.0 Absolute Nucleated RBC 0.00 Nucleated RBC % 0.0 PT 15.0 H INR 1.4 H Sodium 140 Potassium 4.1 Chloride 102 Carbon Dioxide 27 Anion Gap 11.0 BUN 17 Creatinine 0.6 Estimated GFR (MDRD) 128 Glucose 152 H Lactic Acid Calcium 9.1 Magnesium 1.9 Total Bilirubin 3.6 H AST 93 H ALT 74 H Alkaline Phosphatase 683 H Total Protein 6.9 Albumin 3.4 Globulin 3.5 Albumin/Globulin Ratio 1.0 Lipase 52 H SARS-CoV-2 (PCR) 01/17/22 01/17/22 20:46 23:31 WBC RBC Hgb Hct MCV MCH MCHC RDW Plt Count MPV Neut # (Auto) Lymph # (Auto) [place] # (Auto) Eos # (Auto) Baso # (Auto) Absolute Nucleated RBC Nucleated RBC % PT INR Sodium Potassium Chloride Carbon Dioxide Anion Gap BUN Creatinine Estimated GFR (MDRD) Glucose Lactic Acid 1.5 Calcium Magnesium Total Bilirubin AST ALT Alkaline Phosphatase Total Protein Albumin Globulin Albumin/Globulin Ratio Lipase SARS-CoV-2 (PCR) NOT DETECTED PD MEDICAL DECISION MAKING - ED course Complexity details: reviewed results, re-evaluated patient, d/w patient ED course: Patient presenting for evaluation of right upper quadrant tenderness. Labs reviewed and patient has an elevated bilirubin and mildly elevated LFTs.Ultrasound and CT scan demonstrate biliary duct dilatation.He is afebrile with a normal white count.He is status postcholecystectomy.Patient's pain has been controlled. He is on waiting list in the region for transfer to facility with GI As he may need an ERCP. 2149 - Records from [facility] requested. However nursing security site supervisor over there only sent to ER report from November 24, 2020. It appears that he had a 93-day admiss ion. She is not able to send over the discharge summary from that admission. He was admitted for Concerns for biliary obstruction and MRCP.It is unclear what occurred during the hospitalization as patient is not a reliable historian and family member was only able to tell us that he was admitted for an "intestinal infection". 0713 - Pt slept comfortably through the night. Pt Remains in the emergency department awaiting transfer to facility to evaluate for biliary obstruction. His home meds have been ordered with Eliquis being held. His vital signs have been stable. Pt signed out to Dr. Levy at shift change. MRCP ordered as pt remains boarding and may help in disposition. Departure - Departure Disposition: 02 Transfer Acute Care Hosp Clinical Impression: Biliary obstruction, Atrial fibrillation with RVR Condition: Fair
[2022-01-17 21:04] LABS: BASOPHILS % (AUTO) 0.4 %; EOSINOPHILS # (AUTO) 0.1 10^3/uL (0.0-0.7); EOSINOPHILS % (AUTO) 1.4 %; HCT - HEMATOCRIT 37.5 % (42.0-52.0); HGB - HEMOGLOBIN 12.5 g/dL (14.0-18.0); LYMPHOCYTES # (AUTO) 1.2 10^3/uL (1.5-3.5); LYMPHOCYTES % (AUTO) 15.1 %; MEAN CORPUSCULAR HEMOGLOBIN 31.3 pg (27.0-31.0); MEAN CORPUSCULAR HGB CONC 33.3 g/dL (32.0-36.0); MEAN CORPUSCULAR VOLUME 93.8 fL (80.0-94.0); MEAN PLATELET VOLUME 9.8 fL (7.4-11.4); MONOCYTES # (AUTO) 0.5 10^3/uL (0.0-1.0); MONOCYTES % (AUTO) 6.6 %; NEUTROPHILS # (AUTO) 6.1 10^3/uL (1.5-6.6); NEUTROPHILS % (AUTO) 75.8 %; PLT - PLATELET COUNT 175 10^3/uL (130-450); RED CELL DISTRIBUTION WIDTH 14.3 % (12.0-15.0)
[2022-01-17 21:11] LABS: ALBUMIN 3.4 g/dL (3.2-5.5); BILIRUBIN,TOTAL 3.6 mg/dL (0.2-1.0); CALCIUM 9.1 mg/dL (8.5-10.3); CREATININE 0.6 mg/dL (0.6-1.2); MAGNESIUM 1.9 mg/dL (1.7-2.8); POTASSIUM 4.1 mmol/L (3.5-5.0); TOTAL PROTEIN 6.9 g/dL (6.7-8.2)
[2022-01-17 21:20] LABS: INR 1.4 (0.8-1.2)
--- NOTE | 2022-01-17 22:33 | Ultrasound Report ---
PROCEDURE: Abdomen Limited INDICATIONS: RUQ pain/jaundice TECHNIQUE: Real-time focused scanning was performed of the abdomen, with image documentation. COMPARISON: None. FINDINGS: Limited evaluation of the liver demonstrates no discrete hepatic mass. There is patent hepatopedal fl ow within the main portal vein. The gallbladder was not visualized and may be surgically absent. There is mild intrahepatic biliary ductal dilatation and mild intrahepatic dilatation, with the visua lized common bile duct measuring up to 1.0 cm. The pancreas was not well seen sonographically. IMPRESSION: 1. Limited study demonstrates intra and extra hepatic biliary ductal dilatation. The findings are non specific but given history of jaundice, further evaluation is recommended CT to exclude a possible ob structing mass. Reviewed by: Alejandro Gray MD on 01/17/2022 10:31 PM PDT Approved by: Alejandro Gray MD on 01/17/2022 10:31 PM PDT Station ID: [id number]
--- NOTE | 2022-01-17 23:31 | CT Report ---
PROCEDURE: Abdomen/Pelvis W INDICATIONS: epigastric abdominal pain CONTRAST: IV CONTRAST: Optiray 320 ml: 100 PO CONTRAST: *NO PO CONTRAST TECHNIQUE: After the administration of intravenous contrast, 5 mm thick sections acquired from the diaphragms to the symphysis. 5 mm thick coronal and sagittal reformats were acquired. For radiation dose reducti on, the following was used: automated exposure control, adjustment of mA and/or kV according to polly ent size. COMPARISON: Limited ultrasound abdomen 01/17/2022. FINDINGS: Image quality: There is metallic streak artifact from patient's left hip surgical hardware. Lung bases:There is atelectasis and scarring the lung bases. Heart: Heart size is markedly enlarged. There is a large hiatal hernia. ABDOMEN: Liver:No discrete hepatic mass identified. There is intrahepatic pneumobilia. Gallbladder:Surgically absent. Biliary ducts:There is mild intrahepatic biliary ductal dilatation. Prominent extrahepatic dilatatio n is present, with the common bile duct measuring up to 2.0 cm distally. There are indistinct noncalc ified filling defects within the distal common bile duct extending to the ampulla. No discrete obstru cting mass is visualized. Pancreas: No discrete pancreatic mass identified. No pancreatic duct dilatation. Spleen: Normal in size. Adrenal Glands: No adrenal nodules. Kidneys and Ureters: No hydronephrosis. Stomach and Bowel: Stomach, small bowel loops, and colon are normal in caliber and wall thickness. N o evidence of appendicitis. There is colonic diverticulosis without acute diverticular colitis. Peritoneum: No abnormal intraperitoneal fluid. No free air. Ventral Wall: No hernia. Abdominal Nodes: No retroperitoneal or mesenteric adenopathy by size criteria. Vessels: Aorta and inferior vena cava are normal in size.There is moderate atherosclerotic vascular calcification of the aorta and its branch vessels. PELVIS: Pelvic Organs: Unremarkable. Bladder: Unremarkable. Pelvic Nodes: No enlarged lymph nodes. Miscellaneous: No inguinal hernias are seen. Bones: There are mild superior plate compression deformities of the L1, L2, and L3 vertebral bodies of indeterminate acuity. No retropulsed fragments in the spinal canal. Postsurgical changes are demon strated in the left femoral neck status post prior ORIF of an old femoral neck fracture. Visualized o sseous structures demonstrate no suspicious focal lesions. IMPRESSION: 1. Intra and extra hepatic biliary ductal dilatation with prominent dilatation of the common bile jacinto t which demonstrates noncalcified indistinct filling defects distally. The differential includes non calcified gallstones, biliary sludge, or less likely a possible mass lesion. No discrete obstructing mass is visualized. Further evaluation may be obtained with MRCP when clinically feasible. 2. Intrahepatic pneumobilia demonstrated suggesting sequelae of prior axillary intervention. Recommen d correlation with clinical history. Portal venous gas is less likely. 3. No discrete pancreatic mass identified on the current study. Further evaluation may be obtained wi th a contrast-enhanced MRCP when clinically feasible. 4. Large hiatal hernia. 5. Colonic diverticulosis without acute diverticulitis. Reviewed by: Alejandro Gray MD on 01/17/2022 11:35 PM PDT Approved by: Alejandro Gray MD on 01/17/2022 11:35 PM PDT Station ID: [id number]
[2022-01-18] MEDS ORDERED: fentaNYL 100 MCG/2 ML VIAL IVP STA (00:44)
[2022-01-18] MEDS ORDERED: SODIUM CHLORIDE 0.9% 1,000 ML IV STA (02:58)
[2022-01-18] MEDS ORDERED: diltiaZEM INJ 5 MG/ML VIAL IVP STA (03:01)
[2022-01-18] MEDS: METOPROLOL SUCCINATE 25 MG TABLET PO SCH (08:47)
[2022-01-18] MEDS: DIGOXIN 125 MCG TABLET PO SCH (08:47)
[2022-01-18] MEDS: FAMOTIDINE 20 MG/2 ML VIAL IVP SCH ×2 (08:47→21:52)
[2022-01-18] MEDS ORDERED: OLANZapine ODT 5 MG TABLET TL ONE (09:00)
--- NOTE | 2022-01-18 13:29 | MRI Report ---
PROCEDURE: MRCP W/O INDICATIONS: biliary obsruction CONTRAST: None TECHNIQUE: Coronal ultra fast SE through the abdomen, axial 2-D spoiled GE in- and [id number], and breath-hold T2 FSE with fat saturation through the biliary system and pancreas. Oblique coronal and axial thin- slice ultra fast SE, radial thick-slab ultra fast SE centered on the extrahepatic bile ducts. COMPARISON: CT abdomen and pelvis with contrast dated 1936 FINDINGS: Image quality: Patient motion artifact, diagnostic study for choledochal stones. Pancreas and biliary system: Pancreas is better visualized on the CT, and is grossly unremarkable on CT. The earlier tree is diffusely dilated. There are multiple sizable distal common duct stones. Gall bladder is surgically absent Other solid organs: Suboptimally evaluated. No obvious liver masses. Normal size spleen. No obvious r enal masses. Nodes and vessels: No retroperitoneal or mesenteric adenopathy by size criteria. Aorta and inferior vena cava are normal in size. Bowel and peritoneum: Unenhanced bowel loops are normal in caliber. No free fluid. Lung bases: No basal pleural effusions. Cardiomegaly. Bones and soft tissues: No ventral hernias. Bone marrow is of normal overall signal. IMPRESSION: 1. Remote cholecystectomy. 2. Large distal common duct stones result in biliary obstruction. Reviewed by: Bhavesh Levin MD on 01/18/2022 12:28 PM MARIAM Approved by: Bhavesh Levin MD on 01/18/2022 12:28 PM MARIAM Station ID: [id number]
[2022-01-18] MEDS ORDERED: LORazepam 2 MG/ML VIAL IM STA (19:21)
[2022-01-18] MEDS ORDERED: HALOPERIDOL 5 MG/ML VIAL IM STA (19:21)
--- NOTE | 2022-01-18 19:36 | ED Physician Documentation ---
ED Addendum - Addendum Addendum: 01/18/22 19:35 The patient was signed out to me at change of shift by Dr. Noble, pending placement for a biliary obstruction. He remained stable throughout the day, though his blood pressure did trend down. However, he was afebrile and had a normal white blood cell count and lactic acid level. I did speak with the [facility] who stated they would like to know how highly to prioritizethis patient and so I did explain the details of his story to him. They stated they may prioritize the patient more highly, though I did not hear anything further from them today. The patient was signed out to Dr. Sarmiento who is coming on for night guard, continuing to pend transfer to a higher level of care facility. 01/18/22 19:36
[2022-01-18 20:57] LABS: BASOPHILS % (AUTO) 0.3 %; EOSINOPHILS % (AUTO) 0.1 %; HCT - HEMATOCRIT 32.9 % (42.0-52.0); HGB - HEMOGLOBIN 10.9 g/dL (14.0-18.0); LYMPHOCYTES # (AUTO) 0.8 10^3/uL (1.5-3.5); LYMPHOCYTES % (AUTO) 8.3 %; MEAN CORPUSCULAR HEMOGLOBIN 30.5 pg (27.0-31.0); MEAN CORPUSCULAR HGB CONC 33.1 g/dL (32.0-36.0); MEAN CORPUSCULAR VOLUME 92.2 fL (80.0-94.0); MEAN PLATELET VOLUME 9.1 fL (7.4-11.4); MONOCYTES # (AUTO) 0.6 10^3/uL (0.0-1.0); MONOCYTES % (AUTO) 6.4 %; NEUTROPHILS # (AUTO) 8.1 10^3/uL (1.5-6.6); NEUTROPHILS % (AUTO) 84.2 %; PLT - PLATELET COUNT 153 10^3/uL (130-450); RED BLOOD COUNT 3.57 10^6/uL (4.70-6.10); RED CELL DISTRIBUTION WIDTH 14.3 % (12.0-15.0); WHITE BLOOD COUNT 9.7 x10^3/uL (4.8-10.8)
[2022-01-18] MEDS ORDERED: MIRTAZAPINE 15 MG TABLET PO SCH (21:00)
[2022-01-18 21:09] LABS: ALBUMIN 2.9 g/dL (3.2-5.5); ALBUMIN/GLOBULIN RATIO 0.9 (1.0-2.2); BILIRUBIN,TOTAL 5.8 mg/dL (0.2-1.0); CALCIUM 8.5 mg/dL (8.5-10.3); CREATININE 0.6 mg/dL (0.6-1.2); POTASSIUM 3.5 mmol/L (3.5-5.0); TOTAL PROTEIN 6.3 g/dL (6.7-8.2)
[2022-01-18] MEDS: MIRTAZAPINE 15 MG TABLET PO SCH (21:52)
[2022-01-19] MEDS: FAMOTIDINE 20 MG/2 ML VIAL IVP SCH ×2 (08:22→21:01)
[2022-01-19] MEDS: METOPROLOL SUCCINATE 25 MG TABLET PO SCH (08:22)
[2022-01-19] MEDS: DIGOXIN 125 MCG TABLET PO SCH (08:22)
--- NOTE | 2022-01-19 13:13 | ED Physician Documentation ---
ED Addendum - Addendum Addendum: 01/19/22 13:11 No changes this morning. Patient is still comfortable. We will repeat his lab work. No fevers. No signs of infection. Patient continues to await transfer for higher level of care. He is on multiple waiting list as well as the [facility] center. Patient continues to be afebrile. Liver function test slightly improved.
[2022-01-19 13:19] LABS: BASOPHILS % (AUTO) 0.2 %; EOSINOPHILS # (AUTO) 0.1 10^3/uL (0.0-0.7); EOSINOPHILS % (AUTO) 0.8 %; HCT - HEMATOCRIT 36.6 % (42.0-52.0); HGB - HEMOGLOBIN 12.1 g/dL (14.0-18.0); LYMPHOCYTES # (AUTO) 1.1 10^3/uL (1.5-3.5); LYMPHOCYTES % (AUTO) 12.7 %; MEAN CORPUSCULAR HEMOGLOBIN 31.3 pg (27.0-31.0); MEAN CORPUSCULAR HGB CONC 33.1 g/dL (32.0-36.0); MEAN CORPUSCULAR VOLUME 94.6 fL (80.0-94.0); MEAN PLATELET VOLUME 9.8 fL (7.4-11.4); MONOCYTES # (AUTO) 0.5 10^3/uL (0.0-1.0); MONOCYTES % (AUTO) 5.5 %; NEUTROPHILS # (AUTO) 6.9 10^3/uL (1.5-6.6); NEUTROPHILS % (AUTO) 80.1 %; PLT - PLATELET COUNT 182 10^3/uL (130-450); RED BLOOD COUNT 3.87 10^6/uL (4.70-6.10); RED CELL DISTRIBUTION WIDTH 14.6 % (12.0-15.0); WHITE BLOOD COUNT 8.6 x10^3/uL (4.8-10.8)
[2022-01-19 13:30] LABS: ALBUMIN 3.3 g/dL (3.2-5.5); ALBUMIN/GLOBULIN RATIO 0.9 (1.0-2.2); BILIRUBIN,TOTAL 4.5 mg/dL (0.2-1.0); CALCIUM 9.1 mg/dL (8.5-10.3); CREATININE 0.8 mg/dL (0.6-1.2); POTASSIUM 3.9 mmol/L (3.5-5.0); TOTAL PROTEIN 6.9 g/dL (6.7-8.2)
[2022-01-19] MEDS: MIRTAZAPINE 15 MG TABLET PO SCH (21:07)
[2022-01-19] MEDS ORDERED: HYDROmorphone 0.5 MG/0.5 ML SYRINGE IVP STA (21:57)
[2022-01-19] MEDS ORDERED: PIPERACILLIN/TAZOBACTAM 3.375 GM in SODIUM CHLORIDE 0.9% MINIBAG 100 ML IV STA (21:57)
[2022-01-20] MEDS: DIGOXIN 125 MCG TABLET PO SCH (08:43)
[2022-01-20] MEDS: FAMOTIDINE 20 MG/2 ML VIAL IVP SCH (08:44)
[2022-01-20] MEDS: METOPROLOL SUCCINATE 25 MG TABLET PO SCH (08:44)
[2022-01-20 08:55] LABS: BASOPHILS % (AUTO) 0.6 %; EOSINOPHILS # (AUTO) 0.2 10^3/uL (0.0-0.7); HCT - HEMATOCRIT 35.7 % (42.0-52.0); HGB - HEMOGLOBIN 11.7 g/dL (14.0-18.0); LYMPHOCYTES # (AUTO) 1.3 10^3/uL (1.5-3.5); LYMPHOCYTES % (AUTO) 18.4 %; MEAN CORPUSCULAR HEMOGLOBIN 30.9 pg (27.0-31.0); MEAN CORPUSCULAR HGB CONC 32.8 g/dL (32.0-36.0); MEAN CORPUSCULAR VOLUME 94.2 fL (80.0-94.0); MEAN PLATELET VOLUME 9.9 fL (7.4-11.4); MONOCYTES # (AUTO) 0.5 10^3/uL (0.0-1.0); MONOCYTES % (AUTO) 7.1 %; NEUTROPHILS # (AUTO) 4.9 10^3/uL (1.5-6.6); NEUTROPHILS % (AUTO) 69.8 %; PLT - PLATELET COUNT 184 10^3/uL (130-450); RED BLOOD COUNT 3.79 10^6/uL (4.70-6.10); RED CELL DISTRIBUTION WIDTH 14.7 % (12.0-15.0); WHITE BLOOD COUNT 7.1 x10^3/uL (4.8-10.8)
[2022-01-20 09:06] LABS: ALBUMIN 3.1 g/dL (3.2-5.5); ALBUMIN/GLOBULIN RATIO 0.9 (1.0-2.2); BILIRUBIN,TOTAL 3.3 mg/dL (0.2-1.0); CALCIUM 8.8 mg/dL (8.5-10.3); CREATININE 0.8 mg/dL (0.6-1.2); POTASSIUM 3.4 mmol/L (3.5-5.0); TOTAL PROTEIN 6.6 g/dL (6.7-8.2)
--- NOTE | 2022-01-20 12:08 | ED Physician Documentation ---
ED Addendum - Addendum Addendum: 01/20/22 12:[address] [facility] who will be expecting beds available this afternoon after discharges. The transfer center had me talk concurrently with the estimating manager on-call as well as the hospitalist Dr. Zaidi. They are excepting of the patient in transfer. They do ask for a updated repeat COVID test as of the last 1 was 3 days ago here in the ER. I did review the blood test numbers and trends with the estimating manager as well as the MRCP report. As soon as their bed becomes available and repeat COVID test negative, they will contact us and we we will initiate transfer. Images were pushed to [facility]. 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 Certainly they will be looking at a as we push the images.
[2022-01-20 12:47] VITALS: BP 103/75
== END 2022-01-20 13:24 | disposition short-term general hospital (02) ==
LOC: ED 20:37
DX: K83.1 Obstruction of bile duct (principal); I48.91 Unspecified atrial fibrillation; Z79.01 Long term (current) use of anticoagulants; Z20.822 Contact with and (suspected) exposure to COVID-19
CPT/HCPCS: 36415; 74177; 74181; 76705; 80053; 83605; 83690; 83735; 85025; 85610; 87040; 87635; 93005; 99282; 99284; A9270; J1170; J2060; Q9967

== ENCOUNTER 2022-06-10 11:38 | Outpatient (CLI) | payer MEDICARE, MEDICAID | END 2022-06-10 11:39 | disposition critical access hospital (66) | LOC: EMS 11:38 | DX: S40.022A Contusion of left upper arm, initial encounter (principal); M79.622 Pain in left upper arm; X58.XXXA Exposure to other specified factors, initial encounter | CPT/HCPCS: A0425; A0429 ==

== ENCOUNTER 2022-06-10 11:58 | Emergency (ER) | payer MEDICARE, MEDICAID ==
[2022-06-10] MEDS ORDERED: HYDROmorphone 1 MG/ML CARPUJECT IM STA (12:12)
--- NOTE | 2022-06-10 12:21 | ED Physician Documentation ---
History of Present Illness - Stated complaint Stated Complaint: L ARM/SHOULDER PX - Chief complaint Chief Complaint: Ext Problem - Additonal information Additional information: 87-year-old male who has a history of dementia was brought to the emergency department from his care facility [facility] for concerns of pain in his left arm. He was up eating lunch when the staff noticed a large yellow bruise on his upper arm. The patient was complaining of pain. It is unclear if he had an unwitnessed trauma or fall. Patient is anticoagulated on Eliquis. Has a history of atrial fibrillation on digoxin for rate control. Also on metoprolol. History cannot be obtained from the patient as he has dementia and all he is able to do is cry and scream at the time of his arrival in the ER. History was obtained from EMS Review of Systems Unable to obtain: Dementia, Other PD PAST MEDICAL HISTORY - Past Medical History Cardiovascular: High cholesterol, Atrial fibrillation Neuro: Dementia GI: GERD, Cholelithiasis - Present Medications Home Medications: Ambulatory Orders Medication Instructions Recorded Confirmed Acetaminophen [Tylenol] 975 mg PO Q6H PRN 04/23/21 04/23/21 Apixaban [Eliquis] 5 mg ORAL BID 04/23/21 04/23/21 Digoxin [Lanoxin] 125 mcg PO DAILY 04/23/21 04/23/21 Famotidine [Pepcid] 20 mg PO BID 04/23/21 04/23/21 Ferrous Sulfate 325 mg PO DAILY 04/23/21 04/23/21 Lactobacillus Rhamnosus GG 1 cap PO DAILY 04/23/21 04/23/21 [Culturelle] Lactulose 15 ml PO DAILY 04/23/21 04/23/21 Loperamide [Imodium] 2 mg PO QID PRN 04/23/21 04/23/21 Mag Hydrox/Aluminum Hyd/Simeth 30 ml PO Q4HR PRN 04/23/21 04/23/21 [Antacid Anti-Gas Liquid] Magnesium Hydroxide [Milk of 30 ml PO DAILY PRN 04/23/21 04/23/21 Magnesia] Metoprolol Succinate [Toprol Xl] 50 mg PO BID 04/23/21 04/23/21 Mirtazapine 7.5 mg PO HS 04/23/21 04/23/21 OLANZapine [Zyprexa] 2.5 mg PO ONCE 04/23/21 04/23/21 Polyethylene Glycol 8000 17 gm ORAL DAILY PRN 04/23/21 04/23/21 [Polyethylene Glycol] allopurinoL [Zyloprim] 100 mg PO DAILY 04/23/21 04/23/21 Acetaminophen [Acetaminophen Extra 500 mg PO TID 06/11/21 06/11/21 Strength] Lactobacillus Rhamnosus GG 1 cap PO DAILY 06/11/21 06/11/21 [Culturelle] oxyCODONE [Roxicodone] 5 mg PO BID PRN #10 tablet 06/10/22 - Allergies Allergies/Adverse Reactions: Allergies Allergy/AdvReac Type Severity Reaction Status Date / Time aspirin Allergy Unknown Verified 01/17/22 20:57 morphine Allergy Unknown Verified 01/17/22 20:57 Sulfa (Sulfonamide Allergy Unknown Verified 01/17/22 20:57 Antibiotics) - Social History Does the pt smoke?: No Smoking Status: Never smoker Does the pt drink ETOH?: No Does the pt have substance abuse?: No - POLST Patient has POLST: Yes PD ED PE EXPANDED - General General: Alert, Well developed/nourished, In Pain, In distress - Cardiac Cardiac: Irregularly irregular, Murmur Present, Radial strong equal, Pedal st isreal equal - Respiratory Respiratory: Clear to ausultation felix. No: Distress, Labored - Abdomen Abdomen: Normal Bowel sounds. No: Tender to palpation - Derm Derm: Bruising (Large area of bruising on the left upper arm. The shoulder is tender to palpation in any area. Does not allow any passive movement. Distal 2+ pulse) - Extremities Extremities: Left shoulder (Extensive yellowing bruising on the left upper arm. Patient does also not allow any examination of it secondary to pain. no obvious deformity, though the joint is swollen, but not erythematous.painful with any movement or passive ROM) - Neuro Neuro: Confused, CNII-XII intact - GCS Eye Opening: Spontaneous Motor: Localizes to Pain Verbal: Confused Total: 13 Results - Vitals Vitals: Vital Signs - 24 hr 06/10/22 12:04 Temperature 37.2 C Heart Rate 115 H Respiratory 18 Rate Blood Pressure 175/117 H O2 Saturation 98 Oxygen O2 Source Room air - Rads (name of study) cervical CT Radiology: Final report received (No acute cervical fracture or dislocation) CT head Radiology: Final report received (Generalized volume loss. No evidence of acute intracranial process) Shoulder CT Radiology: Final report received (No evidence of acute fracture or dislocation of the left shoulder. Degenerative change. Shoulder joint effusion) PD Medical Decision Making - ED course Complexity details: reviewed results, considered differential, d/w patient ED course: 87-year-old male who has a history of atrial fibrillation anticoagulated on Eliquis as well as dementia presents the emergency department from home place for evaluation of acute left shoulder pain. Patient began reporting pain this morning but he has a large yellowing bruise on his forearm indicating some remote trauma within the last few days. Therefore we assume he had an unwitnessed fall. History was limited because of the dementia. He appears nonfocal however. A CT of the head and neck showed no acute intracranial processes or fractures. X- ray of the chest was unremarkable. The patient allowed very limited movement or evaluation of the shoulder secon mary to pain. An initial x-ray was indeterminate for possible fracture therefore a CT was completed and no fracture or dislocation is seen however there is a large joint effusion. Given the lack of fevers or erythema I have lower suspicion for an infected joint. I suspect he has a traumatic effusion. I am making the recommendation for Tylenol and alternating with oxycodone. Here in the emergency department the patient did receive a dose of Dilaudid with moderate improvement of pain. He was given a sling for comfort. He is discharged home in stable condition. Emergent return precautions were discussed. Departure - Departure Disposition: 01 Home, Self Care Clinical Impression: Acute pain of left shoulder, Effusion of shoulder joint, left, Anticoagulated Dementia Qualifiers: Dementia type: unspecified type Dementia severity: unspecified severity Dementia behavioral or psychological symptom: unspecified whether behavioral, psychotic, or mood disturbance or anxiety Qualified Code(s): F03.90 - Unspecified dementia, unspecified severity, without behavioral disturbance, psychotic disturbance, mood disturbance, and anxiety Condition: Stable Record reviewed to determine appropriate education?: Yes Prescriptions: oxyCODONE [Roxicodone] 5 mg PO BID PRN #10 tablet PRN Reason: Pain Comments: Jey came to the emergency department today because staff at home place noticed that he was complaining of left arm pain and there was a large bruise on it. We did do a CT of his head and neck and found no worrisome findings. His chest x-ray was also normal for age. The x-ray of his shoulder was indeterminate for possible fracture therefore we did do a CT of the shoulder. We do not see any fractures but there is an effusion within the shoulder joint. Because of the surrounding bruise this likely indicates that he did have some fall or trauma that has resulted in this effusion which is painful. We are giving him a sling to help support his shoulder. We recommend icing the shoulder for 10 minutes 2-3 times a day. He can be given Tylenol for pain. I have sent a prescription to [facility] for more severe pain. This is oxycodone. It can cause constipation so was giving it to him make sure that he is also taking MiraLAX to have bowel movements. It can also put him at increased risk for fall so he should be monitored very closely. Because he is anticoagulated if he has any further falls he does need to return immediately to the ER. Please discuss this ED visit with his primary doctor tomorrow. He may benefit from being referred for physical therapy or to orthopedics for further evaluation moving forward
--- NOTE | 2022-06-10 12:56 | CT Report ---
PROCEDURE: HEAD WO INDICATIONS: unwittnessed fall TECHNIQUE: Noncontrast 4.5 mm thick angled axial sections acquired from the foramen magnum to the vertex. For r adiation dose reduction, the following was used: automated exposure control, adjustment of mA and/or kV according to patient size. COMPARISON: 07/19/2021 FINDINGS: Image quality: Excellent. CSF spaces: Basal cisterns are patent. No extra-axial fluid collections. Ventricles are normal in size and shape. Brain: No midline shift. No intracranial masses or hemorrhage. Joya-white matter interface is norm al. Generalized volume loss, as before. Atherosclerotic intracranial calcifications. Skull and face: Calvarium and visualized facial bones are intact, without suspicious lesions. Sinuses: Visualized sinuses and mastoids are clear. IMPRESSION: Generalized volume loss. No evidence of acute intracranial process. Reviewed by: Bhavesh Levin MD on 06/10/2022 12:54 PM PST Approved by: Bhavesh Levin MD on 06/10/2022 12:54 PM PST Station ID: [id number]
--- NOTE | 2022-06-10 12:57 | CT Report ---
PROCEDURE: CERVICAL SPINE WO INDICATIONS: unwittnessed fall; anticoagulated TECHNIQUE: Noncontrast 3 mm thick sections acquired from the skull base to the T4 level. Sagittal and coronal r eformats were then constructed. For radiation dose reduction, the following was used: automated exp osure control, adjustment of mA and/or kV according to patient size. COMPARISON: None. FINDINGS: Image quality: Excellent. Bones: No fractures or dislocations. Visualized superior ribs are intact. Cervical spondylitic cynthia nge. Soft tissues: Prevertebral soft tissues are normal in thickness. No paravertebral hematomas. No ap ical pneumothoraces. IMPRESSION: No evidence acute cervical fracture or dislocation. Reviewed by: Bhavesh Levin MD on 06/10/2022 12:55 PM PST Approved by: Bhavesh Levin MD on 06/10/2022 12:55 PM [facility] Station ID: [id number]
--- NOTE | 2022-06-10 13:01 | XRAY Report ---
PROCEDURE: Chest 1 View X-Ray INDICATIONS: chest pain TECHNIQUE: One view of the chest was acquired. COMPARISON: None. FINDINGS: Surgical changes and devices: None. Lungs and pleura: No pleural effusions or pneumothorax. Lungs are clear. Mediastinum: Mediastinal contours appear normal. Heart size is normal. Bones and chest wall: No suspicious bony lesions. Overlying soft tissues appear unremarkable. IMPRESSION: No evidence acute pulmonary process. Reviewed by: Bhavesh Levin MD on 06/10/2022 1:00 PM [facility] Approved by: Bhavesh Levin MD on 06/10/2022 1:00 PM [facility] Station ID: [id number]
--- NOTE | 2022-06-10 13:01 | XRAY Report ---
PROCEDURE: Shoulder 3 View LT INDICATIONS: pain; bruise TECHNIQUE: 3 views of the shoulder were acquired. COMPARISON: None. FINDINGS: Bones: Glenohumeral joint degenerative change. Question possible greater tuberosity region impaction . This is not definite. No fractures or dislocations. No suspicious bony lesions. Visualized ribs a ppear intact. Soft tissues: No suspicious soft tissue calcifications. There is soft tissue swelling or fluid imme diately subjacent to the the greater tuberosity. IMPRESSION: Glenohumeral joint degenerative change. Question greater tuberosity impaction with subja cent fluid or swelling. Comment: CT shoulder may help determine whether or not there is a greater tuberosity impaction. Recom mend correlation with physical examination. Reviewed by: Bhavesh Levin MD on 06/10/2022 12:59 PM PST Approved by: Bhavesh Levin MD on 06/10/2022 12:59 PM [facility] Station ID: [id number]
--- NOTE | 2022-06-10 13:57 | CT Report ---
PROCEDURE: UPPER EXTREMITY WO - LT INDICATIONS: pain;? fall vs dislocation TECHNIQUE: Noncontrast 2 mm axial sections were acquired through the shoulder joint, with coronal and sagittal r eformats. For radiation dose reduction, the following was used: automated exposure control, adjustm ent of mA and/or kV according to patient size. COMPARISON: Left shoulder plain films from the same date. FINDINGS: Image quality: Excellent. Bones: No acute fracture or dislocation. Specifically, no greater tuberosity impaction fracture note d. Mild to moderate glenohumeral joint degenerative change. Small subacromial spur. Soft tissues: Shoulder joint effusion. IMPRESSION: 1. No evidence of acute fracture or dislocation of the left shoulder. 2. Degenerative change. 3. Shoulder joint effusion. Reviewed by: Bhavesh Levin MD on 06/10/2022 1:55 PM PST Approved by: Bhavesh Levin MD on 06/10/2022 1:55 PM PST Station ID: [id number]
[2022-06-10 16:05] VITALS: BP 145/118
== END 2022-06-10 16:11 | disposition home or self-care (01) ==
LOC: EDUNIT# → ED 11:58
DX: M25.412 Effusion, left shoulder (principal); F03.90 Unspecified dementia, unspecified severity, without behavioral disturbance, psychotic disturbance, mood disturbance, and anxiety; I48.91 Unspecified atrial fibrillation; Z79.01 Long term (current) use of anticoagulants
CPT/HCPCS: 70450; 71045; 72125; 73030; 73200; 96374; 99283; 99284; J1170

== ENCOUNTER 2022-06-10 16:09 | Outpatient (CLI) | payer MEDICARE, MEDICAID | END 2022-06-10 16:10 | disposition home or self-care (01) | LOC: EMS 16:09 | PROVIDERS: ATTEND Registered Nurse | DX: F03.90 Unspecified dementia, unspecified severity, without behavioral disturbance, psychotic disturbance, mood disturbance, and anxiety (principal); R41.0 Disorientation, unspecified; M25.412 Effusion, left shoulder | CPT/HCPCS: A0425; A0428 ==

== ENCOUNTER 2022-06-25 14:47 | Emergency (ER) | payer MEDICARE, MEDICAID ==
--- NOTE | 2022-06-25 15:49 | XRAY Report ---
PROCEDURE: Wrist 4 View RT INDICATIONS: Trauma TECHNIQUE: 4 views of the wrist were acquired. COMPARISON: None FINDINGS: Bones: There is acute boxer type fracture involving fifth metacarpal neck. Diffuse osteopenia is see n. Severe osteoarthritic changes throughout right wrist are seen with suggestion of scapholunate adva nced collapse. No suspicious bony lesions. Scaphoid view: Scaphoid is grossly intact. Soft tissues: Vascular calcifications are noted in right wrist soft tissue. IMPRESSION: Acute boxer type fracture involving fifth metacarpal neck. 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 No other fracture or dislocation. Reviewed by: Gregorio Pope MD on 06/25/2022 3:47 PM PST Approved by: Gregorio Pope MD on 06/25/2022 3:47 PM PST Station ID: [id number]
--- NOTE | 2022-06-25 15:49 | XRAY Report ---
PROCEDURE: Hand 3 View RT INDICATIONS: Trauma TECHNIQUE: 3 views of the hand(s) acquired. COMPARISON: None FINDINGS: Bones: There is diffuse osteopenia. Acute boxer type fracture involving fifth metacarpal neck/distal shaft is seen with slight dorsal angulation of fracture site. Overlying soft tissue swelling is seen. Osteoarthritic changes are noted throughout right-hand and wrist joints. No suspicious bony lesions. Soft tissues: No suspicious soft tissue calcifications. IMPRESSION: Right hand and wrist joint osteoarthritis. Acute boxer type fracture involving fifth metacarpal neck/ distal shaft. Diffuse osteopenia. Reviewed by: Gregorio Pope MD on 06/25/2022 3:48 PM PST Approved by: Gregorio Pope MD on 06/25/2022 3:48 PM PST Station ID: [id number]
[2022-06-25] MEDS ORDERED: BACITRACIN ZINC OINT 1 PACKET TOP STA (17:33)
--- NOTE | 2022-06-25 17:50 | ED Physician Documentation ---
History of Present Illness - Stated complaint Stated Complaint: RT HAND INJ - Chief complaint Chief Complaint: Trauma Ext - Additonal information Additional information: 87-year-old male was brought to the emergency department for evaluation of acute right hand injury. He resides at home place. His daughter at the bedside provides most of the history as the patient has dementia and is an unreliable historian. Reportedly the daughter was notified early last week that the patient had either fallen or hit his hand in a door and he had a skin tear on the top of the hand. However over the last week he has had progressive swelling area of ecchymosis of this hand with tenderness on the dorsum. He presents to the ER today for further evaluation Review of Systems Unable to obtain: Dementia, Other (Per daughter) PD PAST MEDICAL HISTORY - Past Medical History Cardiovascular: High cholesterol, Atrial fibrillation Neuro: Dementia GI: GERD, Cholelithiasis - Present Medications Home Medications: Ambulatory Orders Medication Instructions Recorded Confirmed Acetaminophen [Tylenol] 975 mg PO Q6H PRN 04/23/21 04/23/21 Apixaban [Eliquis] 5 mg ORAL BID 04/23/21 04/23/21 Digoxin [Lanoxin] 125 mcg PO DAILY 04/23/21 04/23/21 Famotidine [Pepcid] 20 mg PO BID 04/23/21 04/23/21 Ferrous Sulfate 325 mg PO DAILY 04/23/21 04/23/21 Lactobacillus Rhamnosus GG 1 cap PO DAILY 04/23/21 04/23/21 [Culturelle] Lactulose 15 ml PO DAILY 04/23/21 04/23/21 Loperamide [Imodium] 2 mg PO QID PRN 04/23/21 04/23/21 Mag Hydrox/Aluminum Hyd/Simeth 30 ml PO Q4HR PRN 04/23/21 04/23/21 [Antacid Anti-Gas Liquid] Magnesium Hydroxide [Milk of 30 ml PO DAILY PRN 04/23/21 04/23/21 Magnesia] Metoprolol Succinate [Toprol Xl] 50 mg PO BID 04/23/21 04/23/21 Mirtazapine 7.5 mg PO HS 04/23/21 04/23/21 OLANZapine [Zyprexa] 2.5 mg PO ONCE 04/23/21 04/23/21 Polyethylene Glycol 8000 17 gm ORAL DAILY PRN 04/23/21 04/23/21 [Polyethylene Glycol] allopurinoL [Zyloprim] 100 mg PO DAILY 04/23/21 04/23/21 Acetaminophen [Acetaminophen Extra 500 mg PO TID 06/11/21 06/11/21 Strength] Lactobacillus Rhamnosus GG 1 cap PO DAILY 06/11/21 06/11/21 [Culturelle] oxyCODONE [Roxicodone] 5 mg PO BID PRN #10 tablet 06/10/22 - Allergies Allergies/Adverse Reactions: Allergies Allergy/AdvReac Type Severity Reaction Status Date / Time aspirin Allergy Unknown Verified 06/25/22 14:59 morphine Allergy Unknown Verified 06/25/22 14:59 Sulfa (Sulfonamide Allergy Unknown Verified 06/25/22 14:59 Antibiotics) - Social History Does the pt smoke?: No Smoking Status: Never smoker Does the pt drink ETOH?: No Does the pt have substance abuse?: No - POLST Patient has POLST: Yes PD ED PE EXPANDED - General General: Alert, No acute distress - Extremities Extremities: Right hand (Right hand is grossly swollen and ecchymotic. There is a superficial skin tear in various stages of healing on the dorsum of the hand just proximal to the thumb and index finger. Tenderness is elicited with palpation over the fourth and fifth metacarpals. 2+ DP pulse. Neurovascularly intact.) Results - Vitals Vitals: Vital Signs - 24 hr 06/25/22 14:53 Temperature 36.0 C L Heart Rate 58 L Respiratory 16 Rate Blood Pressure 137/86 H O2 Saturation 97 Oxygen O2 Source Room air - Rads (name of study) right hand Radiology: Final report received (Right hand and wrist joint osteoarthritis. Acute boxer type fracture involving the fifth metacarpal neck/distal staff diffuse osteopenia) left wrist Radiology: Final report received (Acute boxer type fracture involving the fifth metacarpal neck. 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 At some point last week he may have either fallen or had his hand closed in a door for which the care staff at home place had reportedly simply bandaged a skin tear. However over the last week he has had progressive ecchymosis and swelling of this right hand with significant tenderness over the fourth and fifth metacarpals. An x-ray of the hand shows diffuse osteopenia, arthritis as well as an acute right fifth distal metacarpal boxer's fracture. Given the skin tear over the hand we elected to place this patient in a Velcro ulnar gutter splint in order to be able to assess the wound. The skin tear is distal to the area of fracture and I have low suspicion for infection at this time. Bacitracin was applied to the wound. The patient will need to be seen by orthopedics in follow-up and I have given the name of our orthopedic surgeon though he is generally followed by the MS and may need a MS provider. Departure - Departure Disposition: 01 Home, Self Care Clinical Impression: Skin tear Fracture, metacarpal Qualifiers: Encounter type: initial encounter Metacarpal bone: fifth Fracture type: closed Metacarpal location: neck Fracture alignment: displaced Laterality: right Qualified Code(s): S62.336A - Displaced fracture of neck of fifth metacarpal bone, right hand, initial encounter for closed fracture Condition: Stable Record reviewed to determine appropriate education?: Yes Instructions: ED Fx Hand Closed Ch Follow-Up: Sean Parham MD [Provider Admit Priv/Credential] - Comments: Jey was seen today in the emergency department because he injured his hand at some point last week. He does have a superficial skin tear underneath his index finger however wound on x-ray the bone on the other side of the hand near the small finger has been fractured. This is why the hand is still swollen and bruised. In order to be able to continue to assess the skin tear and manage the wound we have placed him in a Velcro ulnar gutter splint. He will need to be seen by orthopedics in follow-up of this hand fracture. I have given you the name of our Dr. Parham who can see and manage this fracture though with his insurance the MS may prefer a MS provider. He can continue to take his other usual medications. He will likely require more assistance with eating and activities of daily living now that he does have a hand fracture. If at any point you have concerns of fevers infection of that skin tear or any other emergent concerns he should return immediately to the ER for second evaluation
[2022-06-25 18:09] VITALS: BP 130/80
== END 2022-06-25 18:00 | disposition home or self-care (01) ==
LOC: ED 14:47
DX: S62.336A Displaced fracture of neck of fifth metacarpal bone, right hand, initial encounter for closed fracture (principal); X58.XXXA Exposure to other specified factors, initial encounter; F03.90 Unspecified dementia, unspecified severity, without behavioral disturbance, psychotic disturbance, mood disturbance, and anxiety; I48.91 Unspecified atrial fibrillation; Z79.01 Long term (current) use of anticoagulants
CPT/HCPCS: 29125; 73110; 73130; 99284; A9270

== ENCOUNTER 2022-07-10 14:55 | Outpatient (CLI) | payer MEDICARE, MEDICAID ==
--- NOTE | 2022-07-10 15:57 | XRAY Report ---
PROCEDURE: Hand 3 View RT INDICATIONS: RIGHT HAND PAIN TECHNIQUE: Four views of the hand(s) acquired. COMPARISON: None. FINDINGS: Unchanged right 5th metacarpal fracture. Remaining bones intact. Severe osteophytic changes and possi ble inflammatory arthropathic changes similar to the previous exam. IMPRESSION: Unchanged right 5th metacarpal fracture. Reviewed by: Edward Rivera MD on 07/10/2022 3:55 PM [facility] Approved by: Edward Rivera MD on 07/10/2022 3:55 PM [facility] Station ID: [id number]
== END 2022-07-10 14:59 | disposition home or self-care (01) ==
LOC: DI.WOS 14:55
PROVIDERS: ATTEND Orthopaedic Surgery
DX: S62.306D Unspecified fracture of fifth metacarpal bone, right hand, subsequent encounter for fracture with routine healing (principal)

== ENCOUNTER 2022-08-07 08:00 | Outpatient (CLI) | payer MEDICARE, MEDICAID ==
--- NOTE | 2022-08-07 16:44 | XRAY Report ---
PROCEDURE: Hand 3 View RT INDICATIONS: RIGHT HAND PAIN TECHNIQUE: 3 views of the hand(s) acquired. COMPARISON: X-ray right hand, 07/10/2022, 06/26/2022. X-ray right wrist, 06/25/2022. FINDINGS: Bones: There is a mildly displaced healing fracture in the fifth metacarpal neck with callus formatio n. No suspicious bony lesions. There is [id number] osteoarthritic changes in right wrist and hand. Osteopenia. Mild periarticular bony erosion suggesting inflammatory arthritis such as erosive OA. Soft tissues: Severe atherosclerotic calcifications. IMPRESSION: Healing fracture of the fifth metacarpal neck. Reviewed by: Seth Flores MD on 08/07/2022 4:43 PM PST Approved by: Seth Flores MD on 08/07/2022 4:43 PM PST Station ID: [id number]
== END 2022-08-07 23:59 | disposition home or self-care (01) ==
LOC: DI.WOS 08:00
PROVIDERS: ATTEND Orthopaedic Surgery
DX: S62.337D Displaced fracture of neck of fifth metacarpal bone, left hand, subsequent encounter for fracture with routine healing (principal)

== ENCOUNTER 2022-09-24 08:00 | Outpatient (CLI) | payer MEDICARE, MEDICAID ==
--- NOTE | 2022-09-24 14:01 | XRAY Report ---
PROCEDURE: Hand 3 View RT INDICATIONS: RIGHT HAND PAIN TECHNIQUE: 3 views of the hand acquired. COMPARISON: None. FINDINGS: Bones: There is osteopenia. Progressive healing changes are seen involving the fifth metacarpal frac ture with periosteal new bone formation. The alignment is unchanged. Arthritic changes again seen thr oughout the wrist and hand, and a chronic inflammatory arthritis is not excluded. 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 Soft tissues: No suspicious soft tissue calcifications or masses. IMPRESSION: Progressive healing changes involving the fifth metacarpal shaft fracture with unchanged alignment. Reviewed by: Arnoldo Mina MD on 09/24/2022 2:00 PM PDT Approved by: Arnoldo Mina MD on 09/24/2022 2:00 PM PDT Station ID: [id number]
== END 2022-09-24 23:59 | disposition home or self-care (01) ==
LOC: DI.WOS 08:00
PROVIDERS: ATTEND Orthopaedic Surgery
DX: S62.306D Unspecified fracture of fifth metacarpal bone, right hand, subsequent encounter for fracture with routine healing (principal)

== ENCOUNTER 2022-10-14 14:18 | Emergency (ER) | payer MEDICARE, MEDICAID ==
[2022-10-14 14:57] LABS: BASOPHILS # (AUTO) 0.1 10^3/uL (0.0-0.1); BASOPHILS % (AUTO) 0.7 %; EOSINOPHILS # (AUTO) 0.3 10^3/uL (0.0-0.7); EOSINOPHILS % (AUTO) 4.6 %; HCT - HEMATOCRIT 40.7 % (42.0-52.0); LYMPHOCYTES # (AUTO) 1.8 10^3/uL (1.5-3.5); LYMPHOCYTES % (AUTO) 26.3 %; MEAN CORPUSCULAR HEMOGLOBIN 30.8 pg (27.0-31.0); MEAN CORPUSCULAR HGB CONC 31.9 g/dL (32.0-36.0); MEAN CORPUSCULAR VOLUME 96.4 fL (80.0-94.0); MONOCYTES # (AUTO) 0.6 10^3/uL (0.0-1.0); MONOCYTES % (AUTO) 9.1 %; PLT - PLATELET COUNT 161 10^3/uL (130-450); RED BLOOD COUNT 4.22 10^6/uL (4.70-6.10); RED CELL DISTRIBUTION WIDTH 14.7 % (12.0-15.0); WHITE BLOOD COUNT 6.7 x10^3/uL (4.8-10.8)
[2022-10-14 15:15] LABS: ALBUMIN 3.9 g/dL (3.2-5.5); ALBUMIN/GLOBULIN RATIO 1.4 (1.0-2.2); BILIRUBIN,TOTAL 0.9 mg/dL (0.2-1.0); CALCIUM 8.7 mg/dL (8.5-10.3); CREATININE 0.9 mg/dL (0.6-1.2); POTASSIUM 4.1 mmol/L (3.5-5.0); TOTAL PROTEIN 6.7 g/dL (6.7-8.2)
[2022-10-14] MEDS ORDERED: SODIUM CHLORIDE 0.9% 1,000 ML IV STA (15:49)
--- NOTE | 2022-10-14 15:52 | ED Physician Documentation ---
History of Present Illness - Stated complaint Stated Complaint: VOMITTING - Chief complaint Chief Complaint: Abd Pain - History obtained from History obtained from: Patient, Family - History of Present Illness Pain level max: 0 Pain level now: 0 - Additonal information Additional information: 87-year-old male brought in by his daughter. Has a history of dementia. Lives at a snf. Reportedly has been vomiting after eating. Unclear how long this has been going on. Patient is unable to give any history. The daughter states that he has had weight loss. He is followed by the [facility] as his primary care provider. Reportedly has a history of "esophageal issues". Also has a history of a hiatal hernia. Currently the patient is asymptomatic. Daughter states that occasionally he will say he has abdominal pain. She states that "even liquids are not staying down". Review of Systems Constitutional: denies: Fever GI: denies: Diarrhea, Hematemesis, Bloody / black stool Skin: denies: Rash Neurologic: denies: Headache PD PAST MEDICAL HISTORY - Past Medical History Past Medical History: Yes Cardiovascular: High cholesterol, Atrial fibrillation Neuro: Dementia GI: GERD, Cholelithiasis - Present Medications Home Medications: Ambulatory Orders Medication Instructions Recorded Confirmed Acetaminophen [Tylenol] 975 mg PO Q6H PRN 04/23/21 04/23/21 Apixaban [Eliquis] 5 mg ORAL BID 04/23/21 04/23/21 Digoxin [Lanoxin] 125 mcg PO DAILY 04/23/21 04/23/21 Famotidine [Pepcid] 20 mg PO BID 04/23/21 04/23/21 Ferrous Sulfate 325 mg PO DAILY 04/23/21 04/23/21 Lactobacillus Rhamnosus GG 1 cap PO DAILY 04/23/21 04/23/21 [Culturelle] Lactulose 15 ml PO DAILY 04/23/21 04/23/21 Loperamide [Imodium] 2 mg PO QID PRN 04/23/21 04/23/21 Mag Hydrox/Aluminum Hyd/Simeth 30 ml PO Q4HR PRN 04/23/21 04/23/21 [Antacid Anti-Gas Liquid] Magnesium Hydroxide [Milk of 30 ml PO DAILY PRN 04/23/21 04/23/21 Magnesia] Metoprolol Succinate [Toprol Xl] 50 mg PO BID 04/23/21 04/23/21 Mirtazapine 7.5 mg PO HS 04/23/21 04/23/21 OLANZapine [Zyprexa] 2.5 mg PO ONCE 04/23/21 04/23/21 Polyethylene Glycol 8000 17 gm ORAL DAILY PRN 04/23/21 04/23/21 [Polyethylene Glycol] allopurinoL [Zyloprim] 100 mg PO DAILY 04/23/21 04/23/21 Acetaminophen [Acetaminophen Extra 500 mg PO TID 06/11/21 06/11/21 Strength] Lactobacillus Rhamnosus GG 1 cap PO DAILY 06/11/21 06/11/21 [Culturelle] oxyCODONE [Roxicodone] 5 mg PO BID PRN #10 tablet 06/10/22 - Allergies Allergies/Adverse Reactions: Allergies Allergy/AdvReac Type Severity Reaction Status Date / Time aspirin Allergy Unknown Verified 10/14/22 14:28 morphine Allergy Unknown Verified 10/14/22 14:28 Sulfa (Sulfonamide Allergy Unknown Verified 10/14/22 14:28 Antibiotics) - Social History Does the pt smoke?: No Smoking Status: Never smoker Does the pt drink ETOH?: No Does the pt have substance abuse?: No - POLST Patient has POLST: Yes PD ED PE NORMAL - Vitals Vital signs reviewed: Yes - General General: No acute distress, Well developed/nourished, Other (alert, pleasantly confused) - HEENT HEENT: Pharynx benign, Other (dry lips) - Neck Neck: Supple, no meningeal sign - Cardiac Cardiac: RRR - Respiratory Respiratory: No respiratory distress, Clear bilaterally - Abdomen Abdomen: Soft, Non tender, Non distended - Derm Derm: Warm and dry - Extremities Extremities: No edema, No calf tenderness / cord - Neuro Neuro: Other (alert) Results - Vitals Vitals: Vital Signs - 24 hr 10/14/22 10/14/22 14:22 18:26 Temperature 36.5 C Heart Rate 94 107 H Respiratory 16 18 Rate Blood Pressure 130/77 153/114 H O2 Saturation 98 98 Oxygen O2 Source Room air - Labs Labs: Laboratory Tests 10/14/22 10/14/22 14:52 14:52 WBC 6.7 RBC 4.22 L Hgb 13.0 L Hct 40.7 L MCV 96.4 H MCH 30.8 MCHC 31.9 L RDW 14.7 Plt Count 161 MPV 10.0 Neut # (Auto) 4.0 Lymph # (Auto) 1.8 Shannon # (Auto) 0.6 Eos # (Auto) 0.3 Baso # (Auto) 0.1 Absolute Nucleated RBC 0.00 Nucleated RBC % 0.0 Sodium 141 Potassium 4.1 Chloride 108 Carbon Dioxide 25 Anion Gap 8.0 BUN 22 H Creatinine 0.9 Estimated GFR (MDRD) 80 L Glucose 141 H Calcium 8.7 Total Bilirubin 0.9 AST 17 ALT 11 Alkaline Phosphatase 77 Total Protein 6.7 Albumin 3.9 Globulin 2.8 Albumin/Globulin Ratio 1.4 Lipase 36 - Rads (name of study) CT chest Relevant Findings:: Final report received, See rad report CT abd/pelvis Relevant Findings:: Final report received, See rad report PD Medical Decision Making - ED course Complexity details: reviewed results, re-evaluated patient, considered differential, d/w patient, d/w family ED course: No acute findings on CT of the abdomen pelvis. Does have a moderate hiatal hernia. This may be limiting his amount of oral intake at a time. His CBC does not show any acute abnormalities. Chemistry shows an elevated BUN to creatinine ratio consistent with dehydration. Feels better after IV fluids. Tolerating p.o. without difficulty here. We will recommend small frequent meals and more liquid nutrition for the patient. We will have him follow-up with his doctor for further care. Family counseled regarding signs and symptoms for which I believe and urgent re-evaluation would be necessary. Family with good understanding of and agreement to plan and is comfortable going home at this time This document was made in part using voice recognition software. While efforts are made to proofread this document, sound alike and grammatical errors may occur. Departure - Departure Disposition: 01 Home, Self Care Clinical Impression: Dehydration, Hiatal hernia Vomiting Qualifiers: Vomiting type: unspecified Nausea presence: with nausea Qualified Code(s): R11.2 - Nausea with vomiting, unspecified Condition: Good Instructions: ED Nausea Vomiting Follow-Up: your,doctor in 1 week [Other] Surgical Care [Provider Group] Comments: Please follow-up with your doctor for further care. You should be eating small frequent meals, your meal should probably be about half the size of a normal meal, eating 5-6 times per day. Liquids will help as well, things like Ensure or boost will be easier to tolerate with the hiatal hernia. You can follow-up with a surgeon to discuss potential surgery to see if they think this would help him as well. Discharge Date/Time: 10/14/22 18:31
[2022-10-14] MEDS ORDERED: iohexoL-300 100 ML VIAL ONE (16:00)
[2022-10-14] MEDS ORDERED: iohexoL-300 100 ML VIAL IVP ONE (16:53)
--- NOTE | 2022-10-14 16:56 | CT Report ---
PROCEDURE: CHEST W INDICATIONS: vomiting, h/o "esophageal" issues CONTRAST: 100ml omni 300 TECHNIQUE: After the administration of intravenous contrast, 1 mm axial images were acquired from the pulmonary apices through the posterior costophrenic angles. Axial 5 mm soft tissue kernel reconstructions were performed as well as 8 mm axial MIP and coronal and sagittal 5 mm reformations. For radiation dose reduction, the following was used: automated exposure control, adjustment of mA and/or kV according to patient size. COMPARISON: 06/11/2021. Correlation is also made with the accompanying abdomen pelvis CT, 10/14/2022. FINDINGS: Image quality: Excellent. Lungs and pleura: No consolidation. No pleural effusions. No pneumothorax. No suspicious pulmonary n odules which require follow up. Stable pleural calcification can be seen posteriorly and on the right . Mediastinum: Heart size is normal. No pericardial effusions. No mediastinal adenopathy by size criter ia. No large vessel abnormality. There is a moderate hiatal hernia. Moderate coronary artery calcific ation is seen. Chest wall and lower neck: Thyroid is unremarkable. No axillary or supraclavicular adenopathy by size . Bones: Remote, healed right posterolateral rib fractures are seen. No aggressive osseous abnormality. Several remote thoracic spine anterior wedge deformities are seen. Generalized degenerative changes are seen. Upper Abdomen: Cholecystectomy clips are seen. Associated biliary gas can be seen. IMPRESSION: Negative for pulmonary motion. No significant pulmonary abnormality is seen. Additional findings: Moderate coronary artery calcification Moderate hiatal hernia Several remote thoracic spine anterior wedge deformities. Remote, healed right posterior lateral rib fractures Right pleural calcification, likely related to prior trauma Cholecystectomy, with associated biliary gas, benign. Reviewed by: Shane Parks MD on 10/14/2022 3:55 PM [facility] Approved by: Shane Parks MD on 10/14/2022 3:55 PM [facility] Station ID: [id number]
--- NOTE | 2022-10-14 17:01 | CT Report ---
PROCEDURE: ABDOMEN/PELVIS W INDICATIONS: abd pain, vomiting CONTRAST: 100ml omni 300 TECHNIQUE: After the administration of IV contrast, 5 mm thick sections acquired from the diaphragms to the symp hysis. 5 mm thick coronal and sagittal reformats were acquired. For radiation dose reduction, the f ollowing was used: automated exposure control, adjustment of mA and/or kV according to patient size. COMPARISON: 01/17/2022. Correlation is also made with the accompanying chest CT, 10/14/2022. FINDINGS: Image quality: There is artifact associated with the metallic hardware. Lung bases and heart: There is a moderate hiatal hernia. Liver: Biliary gas is seen. The liver demonstrates normal size and demonstrates no suspicious lesions . Gallbladder and biliary tree: Cholecystectomy. The previously seen biliary dilatation is no longer se en. Spleen: No splenomegaly. Pancreas: No pancreatic ductal dilation. Adrenals: No adrenal nodule. Kidneys and ureters: No hydronephrosis. No renal cystic lesion which requires follow up. No solid mas s. Simple appearing left renal cysts are seen. Bowel and peritoneum: No bowel distension. No pathologic free fluid. Lymph nodes: No central or retroperitoneal adenopathy. Vessels: No infrarenal aortic aneurysm. Atherosclerotic calcification is seen. PELVIS Reproductive organs: Unremarkable. Bladder: Unremarkable. Lymph nodes: Unremarkable. Bones: No aggressive osseous abnormality. Other: No significant ventral or inguinal hernia. Left femoral neck screws are seen. Remote, stable c ompression deformities are seen. Age-appropriate degenerative changes are seen. IMPRESSION: No significant, acute abnormality is seen. Cholecystectomy, with associated biliary gas can again be seen. The previously seen biliary dilatation is longer seen. Additional findings: Moderate hiatal hernia Simple appearing left renal cysts Remote, stable compression deformities Left femoral neck screws Reviewed by: Shane Parks MD on 10/14/2022 4:00 PM [facility] Approved by: Shane Parks MD on 10/14/2022 4:00 PM [facility] Station ID: [id number]
[2022-10-14 18:31] VITALS: BP 153/114
== END 2022-10-14 18:31 | disposition home or self-care (01) ==
LOC: ED 14:18
DX: E86.0 Dehydration (principal); K44.9 Diaphragmatic hernia without obstruction or gangrene; R11.2 Nausea with vomiting, unspecified; F03.90 Unspecified dementia, unspecified severity, without behavioral disturbance, psychotic disturbance, mood disturbance, and anxiety; I48.91 Unspecified atrial fibrillation; Z79.01 Long term (current) use of anticoagulants
CPT/HCPCS: 36415; 71260; 74177; 80053; 83690; 85025; 96360; 99283; 99284; Q9967